=== PATIENT | female | born 1950 | race Caucasian/White ===

== ENCOUNTER 2019-04-22 19:14 | Emergency (ER) | payer MEDICARE ==
[~2019-04-22] VITALS: Ht 157.5 cm; Wt 99.8 kg
[2019-04-22 19:32] VITALS: Ht 157.5 cm; Wt 99.8 kg
[2019-04-22] MEDS ORDERED: TENORMIN50 MG PO (19:33)
[2019-04-22] MEDS ORDERED: ZOLOFT25 MG (19:34)
[2019-04-22] MEDS ORDERED: GLUCOTROL ER2.5 MG PO (19:34)
[2019-04-22] MEDS ORDERED: GLUCOPHAGE500 MG PO (19:34)
[2019-04-22] MEDS ORDERED: PLAVIX75 MG PO (19:35)
[2019-04-22] MEDS ORDERED: ASPIRIN81 MG PO (19:35)
[2019-04-22] MEDS ORDERED: LASIX20 MG (19:35)
[2019-04-22] MEDS ORDERED: GABAPENTIN300 MG PO (19:36)
[2019-04-22] MEDS ORDERED: HYDROCODON-ACE1 EA10 PO (19:36)
[2019-04-22 20:26] LABS: BASOPHILS 0.1 % (0-2); EOSINOPHILS 4.4 % (0-7); HEMOGLOBIN 11.1 g/dL (12-16); IMMATURE GRANULOCYTES 0.3 % (0-5); LYMPHOCYTES 13.8 % (15-50); MCH 29.4 pg (26.0-34.0); MCHC 31.7 g/dL (31.0-37.0); MCV 92.6 fL (80.0-100.0); MEAN PLATELET VOLUME 9.5 fL (7.4-10.4); MONOCYTES 5.9 % (2-11); NEUTROPHILS 75.5 % (40-80); PLATELET COUNT 242 10x3/uL (130-400); RBC 3.78 10x6/uL (4.00-5.40); RDW 14.5 % (11.5-14.5); WBC 6.8 10x3/uL (4.8-10.8)
[2019-04-22 20:34] LABS: INR 0.92 (0.85-1.17); PROTIME 12.4 SECONDS (11.6-15.0)
[2019-04-22 20:37] LABS: CALC OSMOLALITY 276 mosm/kg (275-300); CARBON DIOXIDE 27.2 mmol/L (21.0-32.0); CHLORIDE - SERUM 101 mmol/L (98-107); CREATININE - SERUM 1.3 mg/dL (0.6-1.3); GLUCOSE 161 mg/dL (74-106); POTASSIUM - SERUM 3.5 mmol/L (3.5-5.1); SODIUM 136 mmol/L (136-145); UREA NITROGEN 19 mg/dL (7-18); eGFR NON AFRICAN AMERICAN 43 mL/min (90-120)
[2019-04-22 20:56] LABS: ALBUMIN 3.6 g/dL (3.4-5.0); ALKALINE PHOSPHATASE 103 U/L (30-120); ALT (SGPT) 28 U/L (10-68); BILIRUBIN - TOTAL 0.43 mg/dL (0.2-1.3); CKMB 0.5 U/L (0.0-3.6); CREATINE KINASE 73 UL (21-215); MAGNESIUM - SERUM 1.9 mg/dL (1.8-2.4); PRO BNP 648 pg/mL (0-125); PROTEIN - SERUM 7.2 g/dL (6.4-8.2)
[2019-04-22 21:00] LABS: TROPONIN-I < 0.017 ng/mL (0.000-0.060)
[2019-04-22] MEDS ORDERED: KEFLEX500 MG PO (21:17)
[2019-04-22] MEDS ORDERED: HYDROCODON-ACE1 EAC7 PO (21:17)
[2019-04-22 22:34] VITALS: BP 130/66
== END 2019-04-22 22:34 | disposition home or self-care (01) ==
LOC: D.ER 19:14
PROVIDERS: Emergency Medicine
DX: R06.00 Dyspnea, unspecified (principal); J44.9 Chronic obstructive pulmonary disease, unspecified; E11.9 Type 2 diabetes mellitus without complications; Z79.84 Long term (current) use of oral hypoglycemic drugs; I11.0 Hypertensive heart disease with heart failure; I50.9 Heart failure, unspecified; Z95.5 Presence of coronary angioplasty implant and graft

== ENCOUNTER 2019-05-21 13:52 | Inpatient (IN) | payer MEDICARE ==
[~2019-05-21] VITALS: Ht 157.5 cm; Wt 101.8 kg
[2019-05-21] VITALS (8 sets, daily range): BP systolic 122–157; BP diastolic 75–101; Ht 157.5 cm; Wt 101.8 kg
--- NOTE | ~2019-05-21 | OP ---
PATIENT NAME: ROBERTO MARTEL MEDICAL RECORD: [id number] :48 LOCATION:[id number] ADMISSION DATE:05/21/19 SURGEON: TATYANA WILSON MD DATE OF OPERATION: 05/22/2019 PROCEDURE: Lead portion of permanent pacemaker placement. SURGEON: Vern Junior MD INDICATION: Sick sinus syndrome with complete heart block. DESCRIPTION OF PROCEDURE: After left subclavian was cannulated via modified Seldinger technique via Dr. Junior, first under fluoroscopic guidance, we placed the RV lead in the RV apex without difficulty. After adequate thresholds and R waves were obtained, again under fluoroscopic guidance, we placed the right atrial lead in the right atrial appendage without difficulty. After adequate P waves and thresholds were obtained, the leads were attached to appropriate poles on the generator and pocket was closed via Dr. Junior. IMPRESSION: Successful lead portion of permanent pacemaker placement on Roberto Martel. ESTIMATED BLOOD LOSS: Minimal. COMPLICATIONS: None. DISPOSITION: To the floor, stable. TRANSINT:[id number] Voice Confirmation ID: [id number] DOCUMENT ID: [id number] TATYANA WILSON MD CC: [id number] DICTATION DATE: 05/22/19 1344 COAL EQUIPMENT OPERATOR: 05/22/19 1702 ADM IN [facility] [address] [place] [address]
--- NOTE | ~2019-05-21 | OP ---
PATIENT NAME: ROBERTO MARTEL MEDICAL RECORD: [id number] :48 LOCATION:[id number] ADMISSION DATE:05/21/19 SURGEON: VERN CULVER MD DATE OF OPERATION: 05/22/2019 PREOPERATIVE DIAGNOSIS: Sick sinus syndrome with pauses. POSTOPERATIVE DIAGNOSIS: Sick sinus syndrome with pauses. PROCEDURE: 1. Left subclavian vein dual lead pacemaker placement. 2. Fluoroscopic interpretation. SURGEON: Vern Culver MD REPORT OF PROCEDURE: The patient's left chest was prepped and draped in sterile fashion. A total of 20 mL of 1% lidocaine with epinephrine was infused into the surrounding tissues. A transverse incision was made overlying the left superior lateral chest and a subcutaneous pouch was made over the pectoral fascia. Bob White were used to cannulate the left subclavian vein and guidewires were advanced with ease. Fluoro was used to note that the wires were in good position in the venous system. Dilator trocar devices were placed over the wires and the wires and dilators were removed. The leads were advanced through the trocars until they were positioned in the superior vena cava. At this point, Dr. Patel positioned the leads appropriately in the atrium and ventricle. Once the leads were in good position and functioning appropriately, then these were sutured into place with 2-0 Ti-Cron. The leads were affixed to the pacemaker and the pacemaker was placed into the subcutaneous pouch. We sutured the pacemaker to the pectoral fascia with a single interrupted 2-0 Ti-Cron. The wound was irrigated out with antibiotic solution. The subcutaneous tissues were reapproximated with interrupted 3-0 Vicryl and the skin was closed with running subcutaneous 5-0 Monocryl. COMPLICATIONS: None. CONDITION: Stable. ANESTHESIA: Local MAC. BLOOD LOSS: Minimal. TRANSINT:[id number] Voice Confirmation ID: [id number] DOCUMENT ID: [id number] VERN CULVER MD CC: [id number] DICTATION DATE: 05/22/19 1442 VP AD SALES WEST: 05/22/[address] [facility] [address] [place] [id number]
--- NOTE | ~2019-05-21 | HEMODYNAMI ---
PATIENT:ROBERTO MARTEL MEDICAL RECORD: [id number] : 46 [facility] [id number] ADMISSION DATE: 05/21/19 Generatedon:05/21/201915:45 Patient name: ROBERTO MARTEL Patient #: [id number] SSN: [id number] : 1950 Date of study: 05/21/2019 Page: Of Hemodynamic Procedure Report Patient Data Patient Demographics Procedure consent was obtained First Name: ROBERTO Gender: Female Last Name: DELONTE : 1950 Patient #: [id number] Age: 68 year(s) Race: SSN: [id number] Additional ID: [id number] Contact details [address]: [address] [place] [address] State: [place] City: [place] Zip code: [address] Past Medical History Allergies: No known allergies Admission Admission Data Admission Date: 05/21/2019 Admission Time: 13:52 Arrival Date: 05/21/2019 Arrival Time: 0:00 Admit Source: Emergency Insurance Payor: Private department health insurance [facility] #: [id number] Height (in.): 62 BSA: 1.99 (m2) Height (cm.): 157.48 BMI: 40.32 (kg/m2) Weight (lbs.): 220.46 Weight (kg.): 100 Lab Results Lab Result Date: 05/21/2019 Lab Result Time: 0:00 Biochemistry Name Units Result Min Max BUN mg/dl 20 --(----)*- 7 18 Creatinine mg/dl 1.5 --(----)-* 0.6 1.3 eGFR ml/min 36 *-(----)-- 90 120 NONAFRICAN Procedure Procedure Types Cath Procedure Diagnostic Procedure Temporary Pacemaker Procedure Description Procedure Date Procedure Date: 05/21/2019 Procedure Start Time: 15:25 Procedure End Time: 15:44 Procedure Staff Name Function Duc Wagner MD Performing Physician So Calderon RT Monitor Sade Schultz RT Scrub Keira Ceballos RN Nurse Procedure Data Cath Procedure Fluoroscopy Diagnostic fluoroscopy Total fluoroscopy Time: 1.1 time: 1.1 min min Diagnostic fluoroscopy Total fluoroscopy dose: 59 dose: 59 mGy mGy Entry Location Entry Primary Successful Side Size Upsize Upsize Entry Closure Succes sful Closure Location (Fr) 1 (Fr) 2 (Fr) Remarks Device Remarks Femoral Right 6 Fr artery Short Estimated blood loss: 5 ml Procedure Complications No complications Procedure Medications Medication Administration Route Dosage Oxygen etCO2 Nasal cannula 2 l/min Lidocaine 2% added to field 20 0.9% NaCl I.V. 100 ml/hr Versed I.V. 1 mg Fentanyl I.V. 50 mcg Versed I.V. 1 mg Fentanyl I.V. 50 mcg Hemodynamics Rest BSA: 1.99 (m2) O2 Consumption: Estimated: 158.32 (ml/min) O2 Consumption indexed : Estimated:79.56 (ml/min/m) Heart Rate: 37 (bpm) Snapshots Pre Cath Intra NCS Post Cath Vital Signs Time Heart Resp SPO2 etCO2 NIBP (mmHg) Rhythm Pain Sedation Rate (ipm) (%) (mmHg) Status Level (bpm) 15:17:39 24 18 99 0 Measuring 3 0 (11) 10(A) degree , No Heart pain Block 15:19:01 25 13 97 0 Time 3 0 (11) 10(A) Exceeded degree , No Heart pain Block 15:24:00 23 15 97 0 Measuring 3 0 (11) 10(A) degree , No Heart pain Block 15:25:01 23 15 99 0 140/107(133) 3 0 (11) 10(A) degree , No Heart pain Block 15:29:13 72 16 97 0 130/107(111) 3 0 (11) 10(A) degree , No Heart pain Block 15:34:08 87 20 96 0 145/86(111) Paced 0 (11) 10(A) , No pain 15:39:07 69 18 96 0 Measuring Paced 0 (11) 10(A) , No pain 15:39:40 70 14 96 0 132/79(100) Paced 0 (11) 10(A) , No pain 15:43:52 70 18 94 0 133/78(98) Paced 0 (11) 10(A) , No pain Medications Time Medication Route Dose Verified Delivered Reason Notes Effectiv eness by by 15:16:47 Oxygen etCO2 2 Duc Buffie used for Nasal l/min Bernard Ceballos RN procedure cannula 15:16:55 Lidocaine added 20ml Duc Duc for local 2% to vial Bernard Wagner MD anesthetic field 15:17:07 0.9% NaCl I.V. 100 Duc Buffie Per ml/hr Bernard Ceballos RN physician 15:26:05 Versed I.V. 1 mg Duc Buffie for Bernard Ceballos RN sedation 15:26:11 Fentanyl I.V. 50 Duc Buffie for mcg Bernard Ceballos RN sedation 15:32:39 Versed I.V. 1 mg Duc Buffie for Bernard Ceballos RN sedation 15:32:42 Fentanyl I.V. 50 Duc Buffie for mcg Bernard Ceballos RN sedation Procedure Log Time Note 14:50:59 Informed consent obtained and on chart 14:51:04 Arrival Date: 05/21/2019 12:00:00 AM 14:51:06 Admit Source: Emergency department 14:51:09 Insurance Payor : Private health insurance 14:51:23 Patient Height : 62 inches 14:51:27 Patient Weight : 220.46 lbs 14:51:57 Lab Result : eGFR NONAFRICAN 36 ml/min 14:51:57 Lab Result : Creatinine 1.5 mg/dl 14:51:57 Lab Result : BUN 20 mg/dl 14:52:32 Patient allergic to No known allergies 14:52:47 Keira Ceballos RN sent for patient. Start room use. 15:02:44 Procedure Status PPM/ Gen Change/ Lead Revision/ Temp. 15:03:03 Time tracking: Regular hours (M-F 7:00 - 5:00) 15:03:11 Time tracking: Stay late (Procedures after 5:00pm) 15:03:22 Plan of Care:Hemodynamics will remain stable., Cardiac rhythm will remain stable., Comfort level will be maintained., Respiratory function will remain adequate., Patient/ family verbilizes understanding of procedure., Procedure tolerated without complication., Recovers from procedure without complications.. 15:03:28 Patient received from ED to CCL 1 Alert and oriented. Tansferred to table in Supine position. 15:03:29 Warm blankets applied, and kera hugger turned on for patient comfort. 15:03:29 Correct patient and procedure confirmed by team. 15:03:30 ECG and BP/O2 sat monitors applied to patient. 15:03:42 H&P Date Dictated: 05/21/2019 New H&P dictated by physician.. 15:03:44 Pre-procedure instructions explained to patient. 15:03:44 Pre-op teaching completed and patient verbalized understanding. 15:03:46 Family unavailable. 15:03:48 Patient NPO since Lunch. 15:03:52 Is the patient allergic to Iodine/contrast media? No. 15:03:54 Was the patient premedicated? N/A 15:03:59 Alarms reviewed by R. N. 15:03:59 Sharps counted by scrub and verified by R.N. 15:04:03 Right groin area was prepped with chlora-prep and draped in sterile fashion 15:04:08 Stress Test: no; N/A ? 15:04:11 Lab results completed and on chart. 15:14:46 Is patient on blood thinner?Yes 15:14:49 ACC The patient was administered the following blood thiners within the last 24 hours: ACCPlavix 15:14:51 Patient diabetic? Yes. 15:14:52 If diabetic: On Metformin? Yes 15:14:54 If on Metformin: Last Dose? 05/21/2019 15:14:57 Patient not . Patient is over age 55. 15:14:57 ----Pre-sedation anethsthesia assessment.---- 15:15:01 Previous problem with sedation/anesthesia? No ? 15:15:02 Snore? Yes 15:15:07 Sleep apnea? Unknown 15:15:09 Deviated septum? No 15:15:10 Opens mouth fully? Yes 15:15:11 Sticks out tongue? Yes 15:15:14 Airway obstruction? Yes COPD 15:15:21 Dentures? Yes TOP IN TIGHT 15:15:30 Patient pain scale 0/10 ?. 15:15:38 IV patent on arrival in right antecubital, left antecubital with 0.9% NaCl at [facility]. 15:15:49 Vital chart was started 15:15:50 Full Disclosure recording started 15:16:47 Oxygen 2 l/min etCO2 Nasal cannula was administered by Keira Ceballos RN; used for procedure; Verbal order read back and verified. 15:16:55 Lidocaine 2% 20ml vial added to field was administered by Duc Wagner MD; for local anesthetic; Verbal order read back and verified. 15:17:07 0.9% NaCl 100 ml/hr I.V. was administered by Keira Ceballos RN; Per physician; Verbal order read back and verified. 15:18:49 Rhythm: sinus bradycardia, 3rd degree heart block 15:19:03 Use device set Femoral Dx 15:19:05 ACIST Syringe (77108) opened to sterile field. 15:19:06 Bag Decanter (2002S) opened to sterile field. 15:19:07 Medline Cath Pack ([id number]) opened to sterile field. 15:19:08 ACIST Hand Control (52008) opened to sterile field. 15:19:09 ACIST Manifold (85319) opened to sterile field. 15:19:18 Use device set Temporary Pacemaker 15:19:22 5Fr J Tip Temporary Pacing Catheter ([id number]) opened to sterile field. 15:19:23 2-0 Silk 685H opened to sterile field. 15:20:09 SHEATH 6FR Whiteface (SES911) opened to sterile field. 15:21:10 --------ALL STOP TIME OUT------ 15:21:11 Final Timeout: patient, procedure, and site verified with staff and physician. All members of the team are in agreement. 15:21:13 NOTIFIED DMITRY SHARP FAMILY MEMBER AND INFORMED. 15:21:13 Right groin site verified by team. 15:21:17 Fire Safety Assessment: A--An alcohol-based skin anteseptic being used preoperatively., C--Open oxygen or nitrous oxide is being used., D--An ESU, laser, or fiber-optic light is being used. 15:21:20 Physical assessment completed. ASA score P 2 - A patient with mild systemic disease as per Duc Wagner MD. 15:21:25 3b) 30-44 Moderately reduced kidney function. 15:21:31 Maximum allowable contrast dose (3.7 X eGFR X 0.75)100 ml. 15:21:35 Sedation plan: IV Moderate Sedation Medication:Versed, Fentanyl 15:25:44 Procedure started. 15:25:51 Local anesthetic to right femoral artery with Lidocaine 2% by Duc Wagner MD.INITIAL ACCESS ONLY 15:26:05 Versed 1 mg I.V. was administered by Keira Ceballos RN; for sedation; Verbal order read back and verified. 15:26:11 Fentanyl 50 mcg I.V. was administered by Keira Ceballos RN; for sedation; Verbal order read back and verified. 15:31:05 Baseline sample Acquired. 15:31:13 External pacer/defibrillator. Pads placed on patient. 15::32 A 6 Fr Short sheath was inserted into the Right Femoral artery 15::35 Temporary pacer inserted 15::51 Temporary pacer turned on with the following settings: Rate 70, MA 3, Sensitivity ?. 15:32:39 Versed 1 mg I.V. was administered by Keira Ceballos RN; for sedation; Verbal order read back and verified. 15:32:42 Fentanyl 50 mcg I.V. was administered by Keira Ceballos RN; for sedation; Verbal order read back and verified. 15:38:56 Procedure ended.(Physican Out) 15:39:56 Fluoroscopy time 01.10 minutes. 15:40:00 Fluoroscopy dose: 59 mGy 15:40:00 Flurop Dose total: 59 15:40:05 Dose Area Product 5397 mGy/cm. 15:40:26 Sharps counted by scrub and verified by R.N. 15:40:36 Post-procedure physical assessment completed. ASA score P 2 - A patient with mild systemic disease as per Duc Wagner MD. 15:40:39 Post procedure rhythm: sinus rhythm 15:40:43 Estimated blood loss: 5 ml 15:40:44 Post procedure instruction explained to patient.Patient verbalizes understanding. 15:40:45 Patient needs reinforcement of post procedure teaching. 15:42:14 SETTING TEMP PACER CHANGE TO RATE 70 MA 5. 15:43:36 Procedure and supply charges have been captured, reviewed, submitted and are correct. 15:43:39 Procedure Complication : No complications 15:43:42 Vital chart was stopped 15:43:47 Operative report dictated upon procedure completion. 15:43:52 See physician's report for complete and final results. 15:43:58 Report given to CVICU. 15:44:02 Patient transfered to CVICU with Bed. 15:44:04 Procedure ended. 15:44:04 Full Disclosure recording stopped 15:44:22 End room use (Document Last) 15:44:35 End room use (Document Last) 15:44:52 End room use (Document Last) Device Usage Item Name Manufacture Quantity Catalog Hospital Part Current Minimal L ot# / Number Charge Number Stock Stock Serial# Code ACIST Acist 1 [id number] [id number] 202320 [id number] 20 Syringe Medical (77213) Systems Inc Bag Microtek 1 2001S 888486 58936 [id number] 5 Decanter Medical Inc. () Medline Medline 1 [id number] 20192 034364 5 Cath Pack ([id number]) ACIST Hand Acist 1 24619 831490 821082 308218 5 Control Medical (77751) Systems Inc ACIST Acist 1 40183 842723 268846 045803 5 Manifold Medical (25294) Systems Inc 5Fr J Tip Meredith 1 [id number] 789541 41354 787815 2 Temporary Lifesciences Pacing Catheter ([id number]) 2-0 Silk Ethicon 1 685H 499868 20817 003464 5 685H SHEATH 6FR Terumo 1 [id number] 263729 077758 600272 40 Whiteface (KIR964) Signature Audit Weiser Stage Time Signature Unsigned Intra-Procedure 05/21/2019 So Calderon 3:44:35 PM RT(R) Intra-Procedure 05/21/2019 Keira Ceballos RN 3:44:52 PM Intra-Procedure 05/21/2019 Duc Wagner MD 3:45:12 [place] [address]
--- NOTE | ~2019-05-21 | HEMODYNAMI ---
PATIENT:ROBERTO MARTEL MEDICAL RECORD: [id number] : 46 [id number] ADMISSION DATE: 05/21/19 Generatedon:05/22/201913:41 Patient name: ROBERTO MARTEL Patient #: [id number] SSN: [id number] : 1950 Date of study: 05/22/2019 Page: Of Hemodynamic Procedure Report Patient Data Patient Demographics Procedure consent was obtained First Name: ROBERTO Gender: Female Last Name: DELONTE : 1950 Patient #: [id number] Age: 68 year(s) Race: SSN: [id number] Additional ID: [id number] Contact details Address: [address] [place] [address] State: [place] City: [place] Zip code: [address] Past Medical History Allergies: No known allergies Admission Admission Data Admission Date: 05/21/2019 Admission Time: 15:56 Arrival Date: 05/21/2019 Arrival Time: 0:00 Admit Source: Emergency Insurance Payor: Private department health insurance Room #: D.CV07 [facility] #: [id number] Height (in.): 62 BSA: 1.99 (m2) Height (cm.): 157.48 BMI: 40.32 (kg/m2) Weight (lbs.): 220.46 Weight (kg.): 100 Lab Results Lab Result Date: 05/21/2019 Lab Result Time: 0:00 Biochemistry Name Units Result Min Max BUN mg/dl 20 --(----)*- 7 18 Creatinine mg/dl 1.5 --(----)-* 0.6 1.3 eGFR ml/min 36 *-(----)-- 90 120 NONAFRICAN Procedure Procedure Types Cath Procedure Diagnostic Procedure PPM/ICD PPM Dual Implant Sedation Charges Moderate Sedation up to 15 minutes Procedure Description Procedure Date Procedure Date: 05/22/2019 Procedure Start Time: 13:34 Procedure End Time: 13:39 Procedure Staff Name Function Travis Cary MD Performing Physician Vern Junior MD Assisting physician Jossie Chavarria RT Monitor Keira Ceballos RN Nurse Annamarie Sparrow RT Scrub Procedure Data Cath Procedure Fluoroscopy Diagnostic fluoroscopy Total fluoroscopy Time: 3.2 time: 3.2 min min Diagnostic fluoroscopy Total fluoroscopy dose: dose: 133.02 mGy 133.02 mGy Estimated blood loss: 10 ml Procedure Complications No complications Procedure Medications Medication Administration Route Dosage Oxygen etCO2 Nasal cannula 2 l/min Ancef (1Gm/50ml NS) I.V.P.B 1 g Ancef Irrigation Topical 1 g (1gm/500ml NS) Lidocaine 1% added to field 20 Versed I.V. 2 mg Fentanyl I.V. 100 mcg Fentanyl I.V. 50 mcg Versed I.V. 1 mg Fentanyl I.V. 50 mcg Hemodynamics Rest BSA: 1.99 (m2) O2 Consumption: Estimated: 270.64 (ml/min) O2 Consumption indexed : Estimated:136 (ml/min/m) Pre Cath Intra NCS Post Cath Vital Signs Time Heart Resp SPO2 etCO2 NIBP (mmHg) Rhythm Pain Sedation Rate (ipm) (%) (mmHg) Status Level (bpm) 13:00:57 69 18 94 0 119/75(90) Paced (Missing) 10(A) 13:05:06 70 14 93 0 114/68(94) Paced (Missing) 10(A) 13:19:50 70 14 95 0 113/79(95) Paced (Missing) 9(A) 13:24:04 41 27 95 0 118/59(106) SB (Missing) 9(A) 13:28:18 64 12 96 0 137/70(115) Paced (Missing) 9(A) 13:32:34 80 14 97 0 137/85(117) Paced (Missing) 9(A) 13:36:52 59 16 96 0 126/72(103) Paced (Missing) 10(A) Medications Time Medication Route Dose Verified Delivered Reason Notes Effectiv eness by by 12:55:14 Oxygen etCO2 2 Travis Torresie used for Nasal l/min St Freddie Ceballos social media manager cannula 12:58:51 Ancef I.V.P.B 1 g Travis Torresie used for (1Gm/50ml St Freddie Ceballos social media manager NS) 12:58:58 Ancef Topical 1 g Travis Buffie used for Irrigation St Freddie Ceballos RN procedure (1gm/500ml NS) 13:00:15 Lidocaine added 20ml Travis Porras for local 1% to vial St Freddie Junior MD anesthetic field x2 MD 13:11:24 Versed I.V. 2 mg Travis Crockett for St Freddie Ceballos RN sedation 13:11:34 Fentanyl I.V. 100 Travis Crockett for mcg St Freddie Ceballos RN sedation 13:19:22 Fentanyl I.V. 50 Travis Crockett for mcg St Freddie Ceballos RN sedation 13:35:24 Versed I.V. 1 mg Travis Crockett for St Freddie Ceballos RN sedation 13:35:28 Fentanyl I.V. 50 Travis Torresie for [facility] Freddie Ceballos RN sedation Procedure Log Time Note 12:52:49 Patient Height : 62 inches 12:52:50 Patient Weight : 220.46 lbs 12:53:34 Procedure Status Urgent Heart Cath (IP). 12:53:39 Keira Ceballos RN sent for patient. Start room use. 12:54:03 Time tracking: Regular hours (M-F 7:00 - 5:00) 12:54:08 Plan of Care:Hemodynamics will remain stable., Cardiac rhythm will remain stable., Comfort level will be maintained., Respiratory function will remain adequate., Patient/ family verbilizes understanding of procedure., Procedure tolerated without complication., Recovers from procedure without complications.. 12:54:38 Patient received from Med II to CCL 3 Alert and oriented. Tansferred to table in Supine position. 12:54:42 Signed procedure consent form obtained from patient. 12:55:02 Warm blankets applied, and kera hugger turned on for patient comfort. 12:55:07 Correct patient and procedure confirmed by team. 12:55:08 ECG and BP/O2 sat monitors applied to patient. 12:55:14 Oxygen 2 l/min etCO2 Nasal cannula was administered by Keira Ceballos RN; used for procedure; Verbal order read back and verified. 12:55:25 H&P Date Dictated: 05/21/2019 Within 30 days and on chart., H&P Addendum completed by physician on day of procedure. (MUST COMPLETE FOR ALL OUTPATIENTS). 12:55:27 Pre-procedure instructions explained to patient. 12:55:38 Family unavailable. 12:55:40 Patient NPO since Midnight. 12:58:51 Ancef (1Gm/50ml NS) 1 g I.V.P.B was administered by Keira Ceballos RN; used for procedure; Verbal order read back and verified. 12:58:58 Ancef Irrigation (1gm/500ml NS) 1 g Topical was administered by Keira Ceballos RN; used for procedure; Verbal order read back and verified. 13:00:15 Lidocaine 1% 20ml vial x2 added to field was administered by Vern Junior MD; for local anesthetic; Verbal order read back and verified. 13:04:05 Patient allergic to No known allergies 13:04:10 Is the patient allergic to Iodine/contrast media? No. 13:04:12 Was the patient premedicated? Yes 13:04:13 Is patient on blood thinner?No 13:04:22 Snore? Yes 13:04:28 Patient pain scale 0/10 ?. 13:04:35 IV patent on arrival in right forearm with 0.9% NaCl at [facility]. 13:10:05 Lab results completed and on chart. 13:10:11 Physician arrived 13:10:11 --------ALL STOP TIME OUT------ 13:10:13 Final Timeout: patient, procedure, and site verified with staff and physician. All members of the team are in agreement. 13:10:19 Left chest site verified by team. 13:10:27 Sedation plan: IV Moderate Sedation Medication:Versed, Fentanyl 13:10:52 Use device set PALOMO PPM 13:10:59 Medtronic sales representative groceries Neil present for procedure. 13:11:09 Grounding pad site Left thigh. 13:11:15 Lidocaine 1% was administered to left subclavicular area by Vern Junior MD . 13:11:18 Incision made to left subclavicular area. 13:11:21 2-0 Ticron Multipack ([id number]) opened to sterile field. 13:11:22 3-0 Vicryl Single Pack [id number] opened to sterile field. 13:11:22 5-0 Monocryl PS2 [id number] opened to sterile field. 13:11:24 Versed 2 mg I.V. was administered by Keira Ceballos RN; for sedation; Verbal order read back and verified. 13:11:24 Cautery Tip X Ray Technician opened to sterile field. 13:11:25 Cautery Pushbutton Pencil opened to sterile field. 13:11:26 Mepilex Dressing ([id number]) opened to sterile field. 13:11:31 Immobilizer Extra Large opened to sterile field. 13:11:34 Fentanyl 100 mcg I.V. was administered by Keira Ceballos RN; for sedation; Verbal order read back and verified. 13:11:49 Procedure started. 13:13:[address] Generator [id number] opened to sterile field. 13:13:55 Medtronic 4074-52 PPM Lead opened to sterile field. 13:13:56 Medtronic 4574-45 PPM Lead opened to sterile field. 13:14:53 Vital chart was started 13:18:18 Left subclavian vein accessed with 9Fr Peel Away Sheath. 13:18:24 Left subclavian vein accessed with 9Fr Peel Away Sheath. 13:18:28 Ventricular lead inserted and advanced. 13:18:32 Atrial lead inserted and advanced. 13:19:22 Fentanyl 50 mcg I.V. was administered by Keira Ceballos RN; for sedation; Verbal order read back and verified. 13:20:21 Ventricular lead tested. 13:20:23 Atrial lead tested. 13:20:25 Peel-a-way sheath was split and removed. 13:20:26 Peel-a-way sheath was split and removed. 13:20:49 PPM Dual was attached to lead(s) and inserted into pocket. 13:26:37 Temporary pacer turn off 13:26:40 Temporary pacer removed 13:29:46 Device pocket was irrigated with Ancef. 13:30:31 Ventricular lead attachment was completed with 2-0 silk. 13:30:35 Atrial lead attachment was completed with 2-0 silk. 13:30:40 Generator was sutured in place with 2-0 silk. 13:30:47 Subcutaneous closure was completed with 3-0 vicryl. 13:30:56 Skin closure was completed with 5-0 monocryl. 13:32:52 Parameters-- Generator: Mode: DDDR. Lower Rate: 60bpm. Upper Rate: 120bpm. 13:33:24 Parameters--Ventricular P/R Wave: 11.2mV. Current: .3mA; Threshold: .4V; Impedence: 1441OHMS. 13:33:46 Parameters--Atrial P/R Wave: 1.7mV. Current: .9mA; Threshold: .6V; Impedence: 576OHMS. 13:33:52 Lt Chest incision was dressed with Mepilex dressing. 13:34:49 Full Disclosure recording started 13:35:08 Procedure ended.(Physican Out) 13:35:24 Versed 1 mg I.V. was administered by Keira Ceballos RN; for sedation; Verbal order read back and verified. 13:35:28 Fentanyl 50 mcg I.V. was administered by Keira Ceballos RN; for sedation; Verbal order read back and verified. 13:35:48 Fluoroscopy time 03.20 minutes. 13:35:56 Fluoroscopy dose: 133.02 mGy 13:35:56 Flurop Dose total: 133.02 13:36:02 Dose Area Product 1522 mGy/cm. 13:36:07 Sharps counted by scrub and verified by R.N. 13:36:10 Insertion/operative site no bleeding no hematoma. 13:36:24 Post Procedure Pulses reassessed and unchanged 13:36:34 Post-procedure physical assessment completed. ASA score P 3 - A patient with severe systemic disease as per Travis Cary MD. 13:36:39 Post procedure rhythm: paced 13:36:44 Estimated blood loss: 10 ml 13:36:46 Post procedure instruction explained to patient.Patient verbalizes understanding. 13:37:56 Procedure type changed to Cath procedure, Diagnostic procedure, PPM/ICD, PPM Dual Implant, Sedation Charges, Moderate Sedation up to 15 minutes 13:37:58 Procedure and supply charges have been captured, reviewed, submitted and are correct. 13:38:25 Procedure Complication : No complications 13:38:27 Vital chart was stopped 13:38:42 Operative report dictated upon procedure completion. 13:38:43 See physician's report for complete and final results. 13:38:45 Report given to Med II. 13:38:50 Patient transfered to [facility] II with Bed. 13:39:01 Procedure ended. 13:39:01 Full Disclosure recording stopped 13:39:05 End room use (Document Last) 13:40:09 End room use (Document Last) 13:41:01 End room use (Document Last) Device Usage Item Name Manufacture Quantity Catalog Hospital Part Current Minima l Lot# / Number Charge Number Stock Stock Serial# Code 2-0 Ticron Ethicon 1 [id number] 077740 86970 [id number] 5 Multipack ([id number]) 3-0 Vicryl Ethicon 1 [id number] 994550 922513 355278 5 Single Pack [id number] 5-0 Monocryl Ethicon 1 Y495G 051825 674207 558250 5 PS2 Y495G Cautery Tip Microtek 1 [id number] 304759 491582 862489 5 X Ray Technician [employer] Inc[employer] Cautery Microtek 1 [id number] 260308 87244 102245 5 Pushbutton Medical Inc. Pencil Mepilex Cardinal 1 985937 055630 683551 535179 5 [facility] ([id number]) Immobilizer Cardinal 1 [id number] 346576 476810 584869 5 Extra Large Health Medtronic Medtronic 1 W1DR01 271363 5040104 998437 [address] [id number] Generator EXP W1DR01 .2020-09-27 Medtronic Medtronic 1 4074-52 041356 949019 112050 5 4074-52 PPM [id number] Lead EXP .2021-03-06 Medtronic Medtronic 1 4574-45 927653 046508 437122 5 4574-45 PPM [id number] Lead EXP . 2021-01-23 Signature Audit [place] Stage Time Signature Unsigned Intra-Procedure 05/22/2019 Jossie Chavarria 1:40:09 PM RT(R) Intra-Procedure 05/22/2019 Keira Ceballos RN 1:41:01 PM Intra-Procedure 05/22/2019 Travis Fletcher 1:41:29 PM Freddie SINGLETARY [address] [id number]
[~2019-05-21 13:52] MED LIST: ASPIRIN81 MG PO; GABAPENTIN300 MG PO; GLUCOPHAGE500 MG PO; GLUCOTROL ER2.5 MG PO; HYDROCODON-ACE1 EA10 PO; HYDROCODON-ACE1 EAC7 PO; KEFLEX500 MG PO; LASIX20 MG; PLAVIX75 MG PO; TENORMIN50 MG PO; ZOLOFT25 MG
[2019-05-21 14:44] LABS: APTT 28.5 SECONDS (22.8-39.4); INR 0.91 (0.85-1.17); PROTIME 12.2 SECONDS (11.6-15.0)
[2019-05-21 14:46] LABS: CALC OSMOLALITY 284 mosm/kg (275-300); CALCIUM 8.8 mg/dL (8.5-10.1); CARBON DIOXIDE 25.9 mmol/L (21.0-32.0); CHLORIDE - SERUM 105 mmol/L (98-107); CREATININE - SERUM 1.5 mg/dL (0.6-1.3); GLUCOSE 201 mg/dL (74-106); POTASSIUM - SERUM 4.3 mmol/L (3.5-5.1); SODIUM 138 mmol/L (136-145); UREA NITROGEN 20 mg/dL (7-18); eGFR NON AFRICAN AMERICAN 36 mL/min (90-120)
[2019-05-21 15:02] LABS: ALBUMIN 3.5 g/dL (3.4-5.0); ALKALINE PHOSPHATASE 114 U/L (30-120); ALT (SGPT) 58 U/L (10-68); CKMB 0.9 U/L (0.0-3.6); CREATINE KINASE 80 UL (21-215); DIGOXIN 0.08 ng/mL (0.90-2.00); MAGNESIUM - SERUM 1.7 mg/dL (1.8-2.4); PRO BNP 1113 pg/mL (0-125); THYROID STIMULATING HORMONE 0.89 uIU/mL (0.36-3.74)
[2019-05-21 15:08] LABS: BASOPHILS 0.2 % (0-2); EOSINOPHILS 3.7 % (0-7); HEMATOCRIT 39.3 % (36.0-48.0); HEMOGLOBIN 11.8 g/dL (12-16); IMMATURE GRANULOCYTES 0.2 % (0-5); LYMPHOCYTES 13.1 % (15-50); MCH 28.8 pg (26.0-34.0); MCV 95.9 fL (80.0-100.0); MEAN PLATELET VOLUME 10.8 fL (7.4-10.4); MONOCYTES 7.3 % (2-11); NEUTROPHILS 75.5 % (40-80); PLATELET COUNT 237 10x3/uL (130-400); RDW 14.3 % (11.5-14.5); TROPONIN-I < 0.017 ng/mL (0.000-0.060); WBC 6.3 10x3/uL (4.8-10.8)
--- NOTE | 2019-05-21 15:59 | NUR ---
1535- CALLED AND INFORMED DMITRY OSULLIVAN, SON IN LAW OF PT, PTS CONDITION POST PROCEDURE. 1550- CALLED [facility] AND INQUIRED ABOUT PT'S CERON/SILVER MEDICATION BAG AFTER ER PERSONEL STATES IT WAS NOT BROUGHT IN WITH PT. AWAITING CALL BACK FROM [facility]. 1631- CALLED [facility] BACK AND LEFT CVICU PHONE NUMBER FOR CALLBACK AWAITING NEWS ON MEDICATION BAG FOR PT. JUANITA NUNEZ RN IS AWARE OF THIS ISSUE AND WILL AWAIT CALL FROM [facility].
--- NOTE | 2019-05-21 20:01 | NUR ---
PT RECEIVED WITH EYES OPEN WATCHING TV. PT WITH EXTERNAL CATH, WITH LEAKING NOTED. PERICARE AND PARTIAL LINEN CHANGE PROVIDED WITH ASSIST OF OFF GOING NURSE. PT TOLERATED WELL, KEEP RIGHT LEG STRAIGHT DUE TO TEMPORARY PACEMAKER THROUGH RIGHT GROIN. PT NPO. COMPLAINS OF PAIN WITH PRN PAIN MEDICATION PROVIDED PER APR. CALL LIGHT IN REACH. WILL CONTINUE TO OBSERVE.
--- NOTE | 2019-05-21 21:16 | NUR ---
PT COMPLAINS OF RESTLES LEG. FIDGETING BILATERAL LEGS, REMINDED TO KEEP RIGHT LEG STRAIGHT. PRN PAIN MEDICATION GIVEN, WITH IMPROVEMENT BUT CONTINUE TO WANT TO MOVE RIGHT LEG. SOFT ANKLE RESTRAINT APPLIED WITH EDUCATION PROVIDED TO PT AND PT IS OK WITH APPLICATION. CALL LIGHT IN REACH. WILL CONTINUE TO OBSERVE.
--- NOTE | 2019-05-21 21:53 | NUR ---
FAMILY CALLED UNABLE TO GIVE INFOMATION DUE TO NOT HAVING SECURITY CODE. PT GIVEN HER SECURITY CODE AND EDUCATED ON PURPOSE, STATES UNDERSTANDING.
--- NOTE | 2019-05-21 23:39 | NUR ---
PT WATCHING TV. NO NEEDS OR CONCERNS MADE KNOWN. REMINDED TO KEEP RIGHT LEG STRAIGHT AND STILL. CALL LIGHT IN REACH. WILL CONTINUE TO OBSERVE.
[2019-05-22] VITALS (26 sets, daily range): BP systolic 117–170; BP diastolic 71–91
--- NOTE | 2019-05-22 01:32 | NUR ---
PT WITH EYES CLOSED AND CHEST RISING. NO S/S OF DISTRESS NOTED. CALL LIGHT IN REACH. WILL CONTINUE TO OBSERVE.
[2019-05-22 02:50] LABS: BILIRUBIN NEGATIVE (NEGATIVE); GLUCOSE NEGATIVE (NEGATIVE); KETONE NEGATIVE (NEGATIVE); NITRITE NEGATIVE (NEGATIVE); UROBILINOGEN NORMAL (NORMAL)
[2019-05-22 06:37] LABS: BASOPHILS 0.4 % (0-2); EOSINOPHILS 5.2 % (0-7); HEMATOCRIT 39.4 % (36.0-48.0); HEMOGLOBIN 11.8 g/dL (12-16); IMMATURE GRANULOCYTES 0.2 % (0-5); MCH 28.4 pg (26.0-34.0); MCHC 29.9 g/dL (31.0-37.0); MCV 94.7 fL (80.0-100.0); MEAN PLATELET VOLUME 10.2 fL (7.4-10.4); MONOCYTES 7.1 % (2-11); NEUTROPHILS 67.1 % (40-80); PLATELET COUNT 190 10x3/uL (130-400); RBC 4.16 10x6/uL (4.00-5.40); RDW 14.1 % (11.5-14.5)
[2019-05-22 06:44] LABS: WBC 4.7 10x3/uL (4.8-10.8)
[2019-05-22 07:01] LABS: ALBUMIN 3.3 g/dL (3.4-5.0); ALKALINE PHOSPHATASE 109 U/L (30-120); ALT (SGPT) 48 U/L (10-68); BILIRUBIN - TOTAL 0.51 mg/dL (0.2-1.3); CALCIUM 8.4 mg/dL (8.5-10.1); CARBON DIOXIDE 28.7 mmol/L (21.0-32.0); CHLORIDE - SERUM 105 mmol/L (98-107); CKMB 0.7 U/L (0.0-3.6); CREATINE KINASE 56 UL (21-215); MAGNESIUM - SERUM 1.7 mg/dL (1.8-2.4); PHOSPHOROUS 2.7 mg/dL (2.5-4.9); POTASSIUM - SERUM 3.7 mmol/L (3.5-5.1); PRO BNP 3303 pg/mL (0-125); PROTEIN - SERUM 6.2 g/dL (6.4-8.2); SODIUM 141 mmol/L (136-145); THYROID STIMULATING HORMONE 0.81 uIU/mL (0.36-3.74); TROPONIN-I 0.017 ng/mL (0.000-0.060)
[2019-05-22 07:02] LABS: CALC OSMOLALITY 283 mosm/kg (275-300); CREATININE - SERUM 1.1 mg/dL (0.6-1.3); GLUCOSE 126 mg/dL (74-106); UREA NITROGEN 14 mg/dL (7-18); eGFR NON AFRICAN AMERICAN 52 mL/min (90-120)
[2019-05-22 14:20] LABS: HEMATOCRIT 39.7 % (36.0-48.0); HEMOGLOBIN 11.8 g/dL (12-16); MCH 28.3 pg (26.0-34.0); MCHC 29.7 g/dL (31.0-37.0); MCV 95.2 fL (80.0-100.0); MEAN PLATELET VOLUME 10.2 fL (7.4-10.4); RBC 4.17 10x6/uL (4.00-5.40); RDW 14.2 % (11.5-14.5); WBC 4.3 10x3/uL (4.8-10.8)
[2019-05-22 14:36] LABS: APTT 28.7 SECONDS (22.8-39.4); PROTIME 13.1 SECONDS (11.6-15.0)
[2019-05-22 14:37] LABS: ANION GAP 7.9 mmol/L (8-16); CALCIUM 8.3 mg/dL (8.5-10.1); CARBON DIOXIDE 31.2 mmol/L (21.0-32.0); CREATININE - SERUM 1.1 mg/dL (0.6-1.3); POTASSIUM - SERUM 4.1 mmol/L (3.5-5.1)
--- NOTE | 2019-05-22 15:19 | NUR ---
PHONE CALL MADE TO DMITRY OSULLIVAN BY DR MEJIA AND INFORMED FAMILY OF PT RESULTS FROM PROCEDURE.
--- NOTE | 2019-05-22 19:00 | NUR ---
SHIFT ASSESSMENT COMPLETED. PT CARE ASSUMED, MONITORS ON AND WORKING, VITALS STABLE, CALL LIGHT WITHIN REACH, SEE FLOW SHEET FOR FURTHER DETAILS, WILL CONTINUE TO OBSERVE.
--- NOTE | 2019-05-22 19:17 | MORECARE ---
CASE MANAGEMENT DISCHARGE SUMMARY PATIENT: ROBERTO MARTEL UNIT: [id number] ADM DATE: 05/21/19 AGE: 68 : [birth year] SEX: F ROOM/BED: [facility] AUTHOR: DANETTE MONTAGUE PHYSICIAN: REFERRING PHYSICIAN: KAM ROBLES MD DATE OF SERVICE: 05/22/19 Discharge Plan Patient Name: ROBERTO MARTEL [facility] : 1950 Planned Disposition: Home Anticipated Discharge Date: Discharge Date: Expected LOS: Initial Reviewer: [email or web address] Initial Review Date: 05/21/2019 Generated: 05/22/19 8:17 pm Patient Name: ROBERTO MARTEL Page 75929 at 1916 All edits/amendments must be made on the electronic document DICTATION DATE: 05/22/191916 LIFESTYLE COORDINATOR: MARY 05/22/191916 RPT#: [id number] DC DATE: STATUS: ADM IN [facility] [address] [place] [address] END OF REPORT
--- NOTE | 2019-05-22 19:24 | MORECARE ---
CASE MANAGEMENT DISCHARGE SUMMARY PATIENT: ROBERTO MARTEL UNIT: [id number] ADM DATE: 05/21/19 AGE: 68 : 48 SEX: F [facility] AUTHOR: DANETTE MONTAGUE PHYSICIAN: REFERRING PHYSICIAN: KAM ROBLES MD DATE OF SERVICE: 05/22/19 Discharge Plan Patient Name: ROBERTO MARTEL [facility] [facility] 1950 Planned Disposition: Home Anticipated Discharge Date: Discharge Date: Expected LOS: Initial Reviewer: [email or web address] Initial Review Date: 05/21/2019 Generated: 05/22/19 8:23 pm DCPIA - Discharge Planning Initial Assessment Updated by [email or web address]: Diana Rausch on 05/22/19 7:20 pm * Is the patient Alert and Oriented? Yes * How many steps to enter\exit or inside your home? * PCP MICHELLE * Pharmacy [facility] * Preadmission Environment Home with Family * ADLs Independent * Other Equipment NEBULIZER, CANE * List name and contact numbers for known caregivers / representatives who currently or will assist patient after discharge: DERRELL STACY [facility] [phone] DMITRY OSULLIVAN [phone] * Verbal permission to speak to the caregivers and representatives has been obtained from the patient. Yes * Community resources currently utilized None * Additional services required to return to the preadmission environment? No * Can the patient safely return to the preadmission environment? Yes * Has this patient been hospitalized within the prior 30 days at any hospital? No Last DP export: 05/22/19 6:17 pm Patient Name: ROBERTO MARTEL Page 48294 at 1924 All edits/amendments must be made on the electronic document DICTATION DATE: 05/22/191922 WALLPAPER PRINTER HELPER: MARY 05/22/191922 RPT#: [id number] DC DATE: STATUS: ADM IN [facility] [address] [place] [address] END OF REPORT
--- NOTE | 2019-05-22 19:37 | MORECARE ---
CASE MANAGEMENT DISCHARGE SUMMARY PATIENT: ROBERTO MARTEL UNIT: [id number] ADM DATE: 05/21/19 AGE: 68 : 48 SEX: F [facility] AUTHOR: CLARI,DOC PHYSICIAN: REFERRING PHYSICIAN: KAM ROBLES MD DATE OF SERVICE: 05/22/19 Discharge Plan Patient Name: ROBERTO MARTEL Facility: [facility]:[place] : 1950 Planned Disposition: Home Anticipated Discharge Date: Discharge Date: Expected LOS: Initial Reviewer: [email or web address] Initial Review Date: 05/21/2019 Generated: 05/22/19 8:37 pm Comments DCP- Discharge Planning Updated by [email or web address]: Diana Rausch on 05/22/19 6:[address] Patient Name: ROBERTO MARTEL Admission Status: ER Accout number: [id number] Admission Date: 05-21-2019 : 1950 Admission Diagnosis: Attending: KAM ROBLES Current LOS: 1 Anticipated DC Date: Planned Disposition: Home Primary Insurance: [employer] CHOICE PPO MCR ADVANT Discharge Planning Comments: CM met with patient to complete initial dc planning assessment. CM educated patient on the CM role and verbal consent given by patient to complete assessment. CM verified patient's address, phone number, and emergency contact phone numbers. Patient lives at home independently. At discharge patient plans to return home and feels that this is a safe discharge. CM discussed availability of home health, rehab services, and medical equipment. Patient states that she has a nebulizer and cane. CM will continue to follow and will assist as needed with dc plans/needs. Legislative Correspondent: Diana Rausch DCPIA - Discharge Planning Initial Assessment Updated by [email or web address]: Diana Rausch on 05/22/19 7:20 pm * Is the patient Alert and Oriented? Yes * How many steps to enter\exit or inside your home? * PCP MICHELLE * Pharmacy [facility] * Preadmission Environment Home with Family * ADLs Independent * Other Equipment NEBULIZER, CANE * List name and contact numbers for known caregivers / representatives who currently or will assist patient after discharge: DERRELL EDWARD - [phone] [place] [address] * Verbal permission to speak to the caregivers and representatives has been obtained from the patient. Yes * Community resources currently utilized None * Additional services required to return to the preadmission environment? No * Can the patient safely return to the preadmission environment? Yes * Has this patient been hospitalized within the prior 30 days at any hospital? No Last DP export: 05/22/19 6:24 pm Patient Name: ROBERTO MARTEL Page 84265 at 1937 All edits/amendments must be made on the electronic document DICTATION DATE: 05/22/191936 FILTER PLANT OPERATOR: MARY 05/22/191936 RPT#: [id number] DC DATE: STATUS: ADM IN [facility] [address] [place] [address] END OF REPORT
[2019-05-23] VITALS (11 sets, daily range): BP systolic 124–161; BP diastolic 65–90
[2019-05-23 06:52] LABS: BASOPHILS 0.2 % (0-2); EOSINOPHILS 5.3 % (0-7); HEMATOCRIT 42.3 % (36.0-48.0); HEMOGLOBIN 12.7 g/dL (12-16); IMMATURE GRANULOCYTES 0.2 % (0-5); LYMPHOCYTES 16.8 % (15-50); MCH 28.5 pg (26.0-34.0); MCV 94.8 fL (80.0-100.0); MEAN PLATELET VOLUME 10.2 fL (7.4-10.4); MONOCYTES 7.7 % (2-11); NEUTROPHILS 69.8 % (40-80); PLATELET COUNT 220 10x3/uL (130-400); RBC 4.46 10x6/uL (4.00-5.40); RDW 14.1 % (11.5-14.5); WBC 4.7 10x3/uL (4.8-10.8)
[2019-05-23 07:06] LABS: ANION GAP 11.1 mmol/L (8-16); CALCIUM 8.7 mg/dL (8.5-10.1); CARBON DIOXIDE 29.8 mmol/L (21.0-32.0); CREATININE - SERUM 1.1 mg/dL (0.6-1.3); MAGNESIUM - SERUM 1.8 mg/dL (1.8-2.4); PHOSPHOROUS 2.9 mg/dL (2.5-4.9); POTASSIUM - SERUM 3.9 mmol/L (3.5-5.1)
--- NOTE | 2019-05-23 09:00 | NUR ---
0700 PT RECIEVED UP IN CHAIR VSS DENIES PAIN SLING IN PLACE, WILL CONTINUE TO MONITOR 0900 AM MEDS GIVEN, ATE 100% BREAKFAST
--- NOTE | 2019-05-23 10:12 | NUR ---
PT TO DC HOME, PT HAS APPT WITH DR MARTINEZ NEXT WEEK, PER DR ROBLES THIS IS OKAY AND NO OTHER FOLLOW UP WITH HIM REQUIRED
--- NOTE | 2019-05-23 10:57 | NUR ---
AWAITING PTS DAUGHTER FOR RIDE, ASSISTED WITH GETTING DRESSED, DC INSTRUCTIONS REVIEWED AND PT DENIES ALL QUESTIONS
--- NOTE | 2019-05-23 11:39 | NUR ---
PT STATES NO ONE IS ABLE TO COME GET HER, CASE MANAGEMENT NOTIFIED
--- NOTE | 2019-05-23 12:53 | NUR ---
PT TO DC WITH TAXI PER CASE MANAGEMENT, PIV DCD AND ASSISTED TO MEET TAXI BY CHARGE NURSE
--- NOTE | 2019-05-24 14:19 | MORECARE ---
CASE MANAGEMENT DISCHARGE SUMMARY PATIENT: ROBERTO MARTEL UNIT: [id number] ADM DATE: 05/21/19 AGE: 68 : 48 SEX: F [facility] AUTHOR: CLARI,DOC PHYSICIAN: REFERRING PHYSICIAN: KAM ROBLES MD DATE OF SERVICE: 05/24/19 Discharge Plan Patient Name: ROBERTO MARTEL Facility: [facility]:[place] : 1950 Planned Disposition: Home Anticipated Discharge Date: Discharge Date: 05/23/2019 Expected LOS: Initial Reviewer: [email or web address] Initial Review Date: 05/21/2019 Generated: 05/24/19 3:19 pm Comments DCP- Discharge Planning Updated by [email or web address]: Diana Rausch on 05/22/19 6:[address] Patient Name: ROBERTO MARTEL Admission Status: ER Accout number: [id number] Admission Date: 05-21-2019 : 1950 Admission Diagnosis: Attending: KAM ROBLES Current LOS: 1 Anticipated DC Date: Planned Disposition: Home Primary Insurance: [employer] CHOICE PPO MCR ADVANT Discharge Planning Comments: CM met with patient to complete initial dc planning assessment. CM educated patient on the CM role and verbal consent given by patient to complete assessment. CM verified patient's address, phone number, and emergency contact phone numbers. Patient lives at home independently. At discharge patient plans to return home and feels that this is a safe discharge. CM discussed availability of home health, rehab services, and medical equipment. Patient states that she has a nebulizer and cane. CM will continue to follow and will assist as needed with dc plans/needs. Fishing Tool Operator: Diana Rausch DCPIA - Discharge Planning Initial Assessment Updated by [email or web address]: Diana Rausch on 05/22/19 7:20 pm * Is the patient Alert and Oriented? Yes * How many steps to enter\exit or inside your home? * PCP MICHELLE * Pharm[facility] * Preadmission Environment Home with Family * ADLs Independent * Other Equipment NEBULIZER, CANE * List name and contact numbers for known caregivers / representatives who currently or will assist patient after discharge: DERRELL EDWARD [phone] DMITRY [phone] * Verbal permission to speak to the caregivers and representatives has been obtained from the patient. Yes * Community resources currently utilized None * Additional services required to return to the preadmission environment? No * Can the patient safely return to the preadmission environment? Yes * Has this patient been hospitalized within the prior 30 days at any hospital? No Last DP export: 05/22/19 6:37 pm Patient Name: ROBERTO MARTEL Page 97137 at 1419 All edits/amendments must be made on the electronic document DICTATION DATE: 05/24/191418 IMPREGNATOR HELPER: MARY 05/24/19 141 RPT#: [id number] DC DATE:05/23/19 STATUS: DIS IN [facility] [address] [place] [address] END OF REPORT
== END 2019-05-23 12:55 | disposition home or self-care (01) | DRG 242 ==
LOC: D.ER 13:52 → D.CVICU 15:56
PROVIDERS: Family Medicine; Internal Medicine Interventional Cardiology; ADMIT Internal Medicine Nephrology; ATTEND Internal Medicine Nephrology
PROC: 02HK3JZ Insertion of Pacemaker Lead into Right Ventricle, Percutaneous Approach (ICD-10-PCS; 2019-05-22)
PROC: 02H63JZ Insertion of Pacemaker Lead into Right Atrium, Percutaneous Approach (ICD-10-PCS; 2019-05-22)
PROC: 0JH606Z Insertion of Pacemaker, Dual Chamber into Chest Subcutaneous Tissue and Fascia, Open Approach (ICD-10-PCS; principal; 2019-05-22 14:15)
DX: I49.5 Sick sinus syndrome (principal); N17.0 Acute kidney failure with tubular necrosis; Z68.41 Body mass index [BMI] 40.0-44.9, adult; I44.2 Atrioventricular block, complete; K21.9 Gastro-esophageal reflux disease without esophagitis; J44.9 Chronic obstructive pulmonary disease, unspecified; E66.01 Morbid (severe) obesity due to excess calories; I10 Essential (primary) hypertension; E11.9 Type 2 diabetes mellitus without complications; E83.42 Hypomagnesemia; I25.10 Atherosclerotic heart disease of native coronary artery without angina pectoris

== ENCOUNTER → 2019-06-19 09:42 | Outpatient (CLI) | payer MEDICARE ==
[2019-05-21 16:43] VITALS: BMI 41.0
== END | disposition home or self-care (01) ==
LOC: D.HCCARDIO 09:42
PROVIDERS: ATTEND Internal Medicine Cardiovascular Disease
DX: I25.10 Atherosclerotic heart disease of native coronary artery without angina pectoris (principal); I73.9 Peripheral vascular disease, unspecified; Z95.0 Presence of cardiac pacemaker

== ENCOUNTER 2019-07-20 08:11 | Outpatient (CLI) | payer MEDICARE ==
[~2019-07-20] VITALS: Ht 157.5 cm; Wt 98.4 kg
--- NOTE | ~2019-07-20 | HEMODYNAMI ---
PATIENT:ROBERTO MARTEL MEDICAL RECORD: [id number] : 46 LOCATION:[facility] ADMISSION DATE: 07/20/19 Generatedon:07/20/201912:16 Patient name: ROBERTO MARTEL Patient #: [id number] SSN: [id number] : 1950 Date of study: 07/20/2019 Page: Of Hemodynamic Procedure Report Patient Data Patient Demographics Procedure consent was obtained First Name: ROBERTO Gender: Female Last Name: DELONTE : 1950 Patient #: [id number] Age: 68 year(s) Race: SSN: [id number] Additional ID: [id number] Contact details Address: [address] [place] [address] State: [place] City: [place] Zip code: [address] Past Medical History Performed procedures and imaging results Date Procedure Procedure Results Comments Stress testing Positive->Intermediate with SPECT MPI risk History of disease Date Diagnosis Comments CAD Diabetes Hypertension COPD Allergies: No known allergies Admission Admission Data Admission Date: 07/20/2019 Admission Time: 8:11 Arrival Date: 07/20/2019 Arrival Time: 0:00 Admit Source: Other Insurance Payor: Private health insurance [facility] #: [id number] Height (in.): 61.81 BSA: 1.97 (m2) Height (cm.): 157 BMI: 39.76 (kg/m2) Weight (lbs.): 216.05 Weight (kg.): 98 Lab Results Lab Result Date: 07/20/2019 Lab Result Time: 0:00 Biochemistry Name Units Result Min Max BUN mg/dl 24 --(----)-* 7 18 Creatinine mg/dl 1.2 --(---*)-- 0.6 1.3 eGFR ml/min 47 *-(----)-- 90 120 NONAFRICAN CBC Name Units Result Min Max Hemoglobin g/dl 12.5 *-(----)-- 13.5 17.5 Procedure Procedure Types Cath Procedure Diagnostic Procedure [facility] w/Coronaries Procedure Description Procedure Date Procedure Date: 07/20/2019 Procedure Start Time: 11:43 Procedure End Time: 12:07 Procedure Staff Name Function Annamarie Andrews RT Monitor Keira Ceballos RN Nurse Duc Wagner MD Performing Physician Fazal Cedillo CRNA Additional personnel So Calderon RT Scrub Procedure Data Cath Procedure Fluoroscopy Diagnostic fluoroscopy Total fluoroscopy Time: 3.2 time: 3.2 min min Diagnostic fluoroscopy Total fluoroscopy dose: dose: 1120 mGy 1120 mGy Contrast Material Contrast Material Type Amount (ml) Isovue 300 81 Entry Location Entry Primary Successful Side Size Upsize Upsize Entry Closure Succes sful Closure Location (Fr) 1 (Fr) 2 (Fr) Remarks Device Remarks Femoral Right 5 Fr Exoseal artery Estimated blood loss: 5 ml Diagnostic catheters Device Type Used For End Catheter Placement MULTIPACK 3DRC 5Fr Right Coronary catheter Angiography MULTIPACK JL 4.0 5Fr Left Coronary catheter Angiography MULTIPACK Pigtail 5 Fr LV Angiography catheter Procedure Complications No complications Procedure Medications Medication Administration Route Dosage Oxygen etCO2 Nasal cannula 2 l/min Lidocaine 2% added to field 20 Heparin Flush Bag added to field 2 bags (1000units/500ml NS) 0.9% NaCl I.V. 100 ml/hr Refer to Anesthesia Notes for Sedation Medications Hemodynamics Rest BSA: 1.97 (m2) HGB: 12.5 (g/dl) O2 Consumption: Estimated: 184.41 (ml/min) O2 Co nsumption indexed: Estimated:93.61 (ml/min/m) Heart Rate: 74 (bpm) Pressure Samples Time Site Value (mmHg) Purpose Heart Use Rate(bpm) 12:00 LV 127/2,12 Snapshot 85 12:00 AO 129/63(90) Pullback 53 Gradients Valve Time Site Site 2 Mean SEP/DFP Peak To Heart Use 1 (mmHg) (sec/min) Peak Rate (mmHg) (bpm) Aortic 12:00 LV AO 15 4 53 129/63(90) Calculations Valve P-P Mean Valve Index Valve Source Name Gradient Area Flow (cm2) Aortic 15 15 Snapshots Pre Cath Intra NCS Post Cath Vital Signs Time Heart Resp SPO2 etCO2 NIBP (mmHg) Rhythm Pain Sedation Rate (ipm) (%) (mmHg) Status Level (bpm) 11:31:43 80 27 94 33.7 185/144(149) NSR 0 (11) 10(A) , No pain 11:37:50 79 22 95 0 153/93(129) NSR 0 (11) 9(A) , No pain 11:42:14 73 20 96 0 145/87(120) NSR 0 (11) 9(A) , No pain 11:46:36 84 22 97 0 155/96(126) NSR 0 (11) 9(A) , No pain 11:51:05 80 19 97 0 144/84(110) NSR 0 (11) 9(A) , No pain 11:55:31 76 20 99 0 141/78(111) NSR 0 (11) 9(A) , No pain 11:59:49 89 20 94 0 125/81(102) NSR 0 (11) 9(A) , No pain 12:04:05 82 20 97 0 139/80(112) NSR 0 (11) 9(A) , No pain 12:07:30 77 21 98 0 155/92(127) NSR 0 (11) 10(A) , No pain Medications Time Medication Route Dose Verified Delivered Reason Notes Effe ctiveness by by 11:40:37 Oxygen etCO2 2 Duc Buffie used for Nasal l/min Bernard Ceballos cnc lathe machinist cannula 11:40:43 Lidocaine 2% added 20ml Duc Buffie used for to vial Bernard Ceballos cnc lathe machinist field 11:40:50 Heparin Flush added 2 Duc Buffie Per Bag to bags Bernard Ceballos RN physician (1000units/500ml field NS) 11:41:02 0.9% NaCl I.V. 100 Duc Buffie Per ml/hr Bernard Ceballos RN physician 11:41:08 Refer to Duc Buffie Anesthesia Notes Bernard Ceballos RN for Sedation Medications Procedure Log Time Note 9:02:19 Informed consent obtained and on chart 9:02:40 Procedure Status Elective Heart Cath (OP). 9:02:41 Time tracking: Regular hours (M-F 7:00 - 5:00) 9:02:44 Plan of Care:Hemodynamics will remain stable., Cardiac rhythm will remain stable., Comfort level will be maintained., Respiratory function will remain adequate., Patient/ family verbilizes understanding of procedure., Procedure tolerated without complication., Recovers from procedure without complications.. 9:02:54 H&P Date Dictated: 07/20/2019 New H&P dictated by physician.. 9:19:23 Patient Weight : 216.05 lbs 9:19:31 Patient Height : 61.81 inches 9:19:35 Arrival Date: 07/20/2019 12:00:00 AM 9:21:45 Patient received from Pre/Post Procedure Room to CCL 1 Alert and oriented. Tansferred to table in Supine position. 9:21:47 ECG and BP/O2 sat monitors applied to patient. 9:21:47 Correct patient and procedure confirmed by team. 9:21:47 Warm blankets applied, and kera hugger turned on for patient comfort. 9:25:12 Pre-procedure instructions explained to patient. 9:25:14 Pre-op teaching completed and patient verbalized understanding. 9:25:16 Family in patients room. 9:25:18 Patient NPO since Midnight. 9:25:19 patient taken off table and sent back to room to wait for anesthesia 10:55:15 Keira Ceballos RN sent for patient. Start room use. 10:57:37 Admit Source: Other 10:57:40 Insurance Payor : Private health insurance 11:00:00 Fazal Cedillo CRNA present and monitoring patient for TIVA. 11:02:03 Lab Result : eGFR NONAFRICAN 47 ml/min 11:02:03 Lab Result : Hemoglobin 12.5 g/dl 11:02:03 Lab Result : BUN 24 mg/dl 11:02:03 Lab Result : Creatinine 1.2 mg/dl 11:29:33 Vital chart was started 11:29:35 Baseline sample Acquired. 11:29:44 Rhythm: sinus rhythm , paced 11:29:48 - 11:30:00 Patient allergic to No known allergies 11:30:02 Is the patient allergic to Iodine/contrast media? No. 11:30:33 Is patient on blood thinner?No 11:30:35 Patient diabetic? Yes. 11:30:38 If diabetic: On Metformin? Yes 11:30:44 Previous problem with sedation/anesthesia? No ? 11:30:45 Snore? Yes 11:30:48 Sleep apnea? No 11:30:49 Deviated septum? No 11:31:02 Opens mouth fully? Yes 11:31:09 Sticks out tongue? Yes 11:31:18 Airway obstruction? No ? 11:31:21 Dentures? No ? 11:31:23 Pre procedure: right dorsailis pedis pulse 1+ Palpable, but thready & weak; easily obliterated 11:31:28 Patient pain scale 0/10 ?. 11:31:50 IV patent on arrival in left hand with 0.9% NaCl at [facility]. 11:31:52 Lab results completed and on chart. 11:31:57 Right groin area was prepped with chlora-prep and draped in sterile fashion 11:31:58 Sharps counted by scrub and verified by R.N. 11:31:58 Alarms reviewed by R. N. 11:32:18 Use device set Femoral Dx 11:32:19 Bag Decanter (2002S) opened to sterile field. 11:32:19 ACIST Syringe (08456) opened to sterile field. 11:32:20 ACIST Manifold (84184) opened to sterile field. 11:32:22 Tegaderm 4 x 4 (1626W) opened to sterile field. 11:32:22 ACIST Hand Control (92308) opened to sterile field. 11:32:44 Medline Cath Pack ([id number]) opened to sterile field. 11:32:45 DIAGNOSTIC Multipack 5Fr catheter set ([id number]) opened to sterile field. 11:32:46 SHEATH 5FR [place] ([id number]) opened to sterile field. 11:32:47 EMERALD Guide Wire (102-207) opened to sterile field. 11:34:49 Physician arrived 11:34:50 --------ALL STOP TIME OUT------ 11:34:51 Final Timeout: patient, procedure, and site verified with staff and physician. All members of the team are in agreement. 11:34:56 Right groin site verified by team. 11:35:00 Fire Safety Assessment: A--An alcohol-based skin anteseptic being used preoperatively., C--Open oxygen or nitrous oxide is being used., D--An ESU, laser, or fiber-optic light is being used. 11:35:03 Physical assessment completed. ASA score P 2 - A patient with mild systemic disease as per Duc Wagner MD. 11:35:22 3a) 45-59 Moderately reduced kidney function. 11:35:38 Maximum allowable contrast dose (3.7 X eGFR X 0.75)130 ml. 11:35:42 Sedation plan: IV Moderate Sedation Medication:Versed, Fentanyl 11:40:37 Oxygen 2 l/min etCO2 Nasal cannula was administered by Keira Ceballos RN; used for procedure; Verbal order read back and verified. 11:40:43 Lidocaine 2% 20ml vial added to field was administered by Keira Ceballos RN; used for procedure; Verbal order read back and verified. 11:40:50 Heparin Flush Bag (1000units/500ml NS) 2 bags added to field was administered by Keira Ceballos RN; Per physician; Verbal order read back and verified. 11:41:02 0.9% NaCl 100 ml/hr I.V. was administered by Keira Ceballos RN; Per physician; Verbal order read back and verified. 11:41:03 Zero performed for pressure channel P1 11:41:08 Refer to Anesthesia Notes for Sedation Medications was administered by Keira Ceballos RN; ; Verbal order read back and verified. 11:43:26 Full Disclosure recording started 11:43:26 Procedure started. 11:43:29 Local anesthetic to right femoral artery with Lidocaine 2% by Duc moura MD.INITIAL ACCESS ONLY 11:48:36 A 5 Fr sheath was inserted into the Right Femoral artery 11:50:09 A MULTIPACK 3DRC 5Fr catheter was advanced over the wire and used for Right Coronary Angiography. 11:52:17 RCA angiography performed. 11:52:19 Injector settings: Ml/sec: 3, Volume: 6, 11:52:31 Catheter removed. 11:52:38 A MULTIPACK JL 4.0 5Fr catheter was advanced over the wire and used for Left Coronary Angiography. 11:53:12 LCA angiography performed. 11:53:14 Injector settings: Ml/sec: 3, Volume: 6, 11:59:55 Catheter removed. 12:00:02 A MULTIPACK Pigtail 5 Fr catheter was advanced over the wire and used for LV Angiography. 12:00:29 LV hemodynamics recorded. 12:00:30 LV gram done using VASQUEZ 12:00:32 Injector settings: Ml/sec: 5, Volume: 15, 12:00:39 EF : 55 % 12:00:52 Catheter removed. 12:04:22 EXOSEAL 5Fr (EX500) opened to sterile field. 12:04:43 Sheath removed intact; hemostasis achieved with Exoseal to the Right Femoral artery. 12:04:49 Procedure ended.(Physican Out) 12:05:08 Fluoroscopy time 03.20 minutes. 12:05:12 Fluoroscopy dose: 1120 mGy 12:05:12 Flurop Dose total: 1120 12:05:18 Dose Area Product 75845 mGy/cm. 12:05:21 Contrast amount:Isovue 300 81ml. 12:05:24 Maximum allowable dose exceeded? No. 12:06:14 Sharps counted by scrub and verified by R.N. 12:06:15 Insertion/operative site no bleeding no hematoma. 12:06:18 Post-op/insertion site Right Femoral artery dressed using a 4 x 4 and Tegaderm. 12:06:20 Post Procedure Pulses reassessed and unchanged 12:06:22 Post procedure rhythm: unchanged. 12:06:37 Estimated blood loss: 5 ml 12:06:38 Post procedure instruction explained to patient.Patient verbalizes understanding. 12:06:39 Patient needs reinforcement of post procedure teaching. 12:06:51 Procedure type changed to Cath procedure, Diagnostic procedure, C, C w/Coronaries 12:07:23 Procedure and supply charges have been captured, reviewed, submitted an d are correct. 12:07:27 Procedure Complication : No complications 12:07:30 Vital chart was stopped 12:07:33 [facility] Findings: MVD- MD will discuss options w/ pt 12:07:34 See physician's report for complete and final results. 12:07:34 Operative report dictated upon procedure completion. 12:07:36 Report given to Pre/Post Procedure Room. 12:07:39 Patient transfered to Pre/Post Procedure Room with Stretcher. 12:07:46 Full Disclosure recording stopped 12:07:46 Procedure ended. 12:08:01 End room use (Document Last) 12:08:29 End room use (Document Last) Device Usage Item Name Manufacture Quantity Catalog Hospital Part Current Minimal L ot# / Number Charge Number Stock Stock Serial# Code ACIST Acist 1 06411 405074 455071 924330 20 Syringe Medical (85189) Systems Inc Bag Microtek 1 2001S 275966 63472 403143 5 Decanter Medical Inc. () ACIST Acist 1 52049 355718 595901 387394 5 Manifold Medical (22688) Systems Inc ACIST Hand Acist 1 32585 475673 961286 247375 5 Control Medical (23768) Systems Inc Tegaderm 4 3M 1 1626W 995273 234232 335163 5 x 4 (1626W) Medline Medline 1 [id number] 093844 15271 075281 5 Cath Pack ([id number]) DIAGNOSTIC Cardinal 1 DO8674 598088 12315 223973 30 Multipack Health 5Fr catheter set (TI7836) SHEATH 5FR Terumo 1 MHN001 847878 870693 729320 5 [place] (KMU677) EMERALD Cardinal 1 502455 470419 519859 876739 5 Guide Wire Health (502455) MULTIPACK Cardinal 1 479076 5 3DRC 5Fr Health catheter MULTIPACK Cardinal 1 852375 5 JL 4.0 5Fr Health catheter MULTIPACK Cardinal 1 025594 5 Pigtail 5 Health Fr catheter EXOSEAL 5Fr Cardinal 1 EX500 030805 460598 362069 10 (EX500) Health Signature Audit [place] Stage Time Signature Unsigned Intra-Procedure 07/20/2019 Annamarie Sparrow 12:08:29 PM RT(R) Intra-Procedure 07/20/2019 Keira Ceballos RN 12:12:14 PM Intra-Procedure 07/20/2019 Duc Wganer MD 12:16:18 PM Signatures Monitor : Annamarie Sparrow RT Signature : Date : Time : Nurse : Keira Ceballos RN Signature : Date : Time : Performing Physician : Signature : Duc Wagner MD Date : Time : [address] [place] [address]
[2019-07-20] MEDS ORDERED: PERCOCET 7.5/321 TAB PO (08:36)
[2019-07-20] MEDS ORDERED: ZOLOFT100 MG PO (08:37)
[2019-07-20] MEDS ORDERED: NORVASC5 MG PO (08:38)
[2019-07-20] MEDS ORDERED: LISINOPRIL5 MG PO (08:38)
[2019-07-20] MEDS ORDERED: LOSARTAN-HCTZ1 EAC1 PO (08:38)
[2019-07-20] MEDS ORDERED: LIPITOR40 MG PO (08:38)
[2019-07-20] MEDS ORDERED: COMBIVENT RESPIM4 GM INH (08:39)
[2019-07-20] MEDS ORDERED: PEPCID AC20 MG PO (08:39)
[2019-07-20] MEDS ORDERED: FUROSEMIDE20 MG PO (08:40)
[2019-07-20 08:46] VITALS: BP 179/95; Ht 157.5 cm; Wt 98.4 kg
[2019-07-20 09:00] LABS: BASOPHILS 0.2 % (0-2); EOSINOPHILS 2.3 % (0-7); HEMATOCRIT 39.7 % (36.0-48.0); HEMOGLOBIN 12.5 g/dL (12-16); IMMATURE GRANULOCYTES 0.2 % (0-5); LYMPHOCYTES 13.3 % (15-50); MCH 28.7 pg (26.0-34.0); MCHC 31.5 g/dL (31.0-37.0); MCV 91.3 fL (80.0-100.0); MEAN PLATELET VOLUME 9.7 fL (7.4-10.4); MONOCYTES 6.8 % (2-11); NEUTROPHILS 77.2 % (40-80); PLATELET COUNT 206 10x3/uL (130-400); RBC 4.35 10x6/uL (4.00-5.40); RDW 14.4 % (11.5-14.5); WBC 5.2 10x3/uL (4.8-10.8)
[2019-07-20 09:21] LABS: CALCIUM 9.3 mg/dL (8.5-10.1); CARBON DIOXIDE 28.9 mmol/L (21.0-32.0); CHOL - HDL RATIO 3.8 ratio (2.3-4.1); CREATININE - SERUM 1.2 mg/dL (0.6-1.3); LDL-HDL RATIO 1.6 ratio (1.5-3.5); POTASSIUM - SERUM 3.9 mmol/L (3.5-5.1)
--- NOTE | 2019-07-20 12:20 | NUR ---
PT REC'D TO ROOM 6 VIA STRETCHER FROM MEAT SEAFOOD ASSOCIATE. MONITORS ESTAB. PT RESTLESS - INSTRUCTED ON IMPORTANCE OF KEEPING R LEG STRAIGH AND HEAD FLAT ON PILLOW. DAUGHTER AT BS TO HELP REMIND HER. SEE AFTERNOON NANNY. ALARMS ON AND C/L IN [facility].
--- NOTE | 2019-07-20 12:35 | NUR ---
R GROIN SITE SOFT, NO S/S BLEEDING OR HEMATOMA, PEDAL PULSE PALP WITH BRISK CAP REFILL. PT VOIDED 350 ML CLEAR, YELLOW URINE ON BED SHEPPARD. ADCIA-CARE PROVIDED. PT STILL C/O "RESTLESS LEG SYNDROME", AWARE AND MEDICATION HAS BEEN GIVEN PREOP. ALARMS ON AND C/L IN REACH.
[2019-07-20] MEDS ORDERED: RANEXA500 MG PO (12:42)
--- NOTE | 2019-07-20 13:05 | NUR ---
R GROIN SITE SOFT, C/D/I. NO S/S BLEEDING OR HEMATOMA. VSS. PT TEARFUL, "I MISS MY MOM AND DAD". PT IS ORIENTED TO SITUATION - "I WANNA GO HOME." EXPLAINED POST OP POC AND REASSURED THAT EVERY THING IS GOING WELL.
--- NOTE | 2019-07-20 13:25 | NUR ---
R GROIN SITE SOFT, C/D/I. HOB UP. SANDWICH TRAY PROVIDED. PT IS CALM, AND DENIES PAIN. "I'M SORRY I ACTED LIKE THAT" - REASSURED PT IT WAS D/T ANSESTHESIA AND THAT EVERYTHING IS GOING OK.
--- NOTE | 2019-07-20 13:40 | NUR ---
R GROIN SITE C/D/I. NO S/S BLEEDING OR HEMATOMA. PULSES PALP. VSS. PT VISITING WITH DAUGHTER. C/L IN REACH.
--- NOTE | 2019-07-20 13:50 | NUR ---
DR. GALLEGOS IN TO SEE PT AND SPOKE WITH HER AND HER DAUGHTER EXTENSIVELY ABOUT FINDINGS AND POC.
--- NOTE | 2019-07-20 13:56 | NUR ---
PRESCRIPTION RANEXA CALLED IN TO [facility] PER PT REQUEST.
--- NOTE | 2019-07-20 14:00 | NUR ---
R GROIN SITE SOFT, C/D/I. PIV D/C'D INTACT, DSG APPLIED. PT ALLOWED UP TO GET DRESSED, DAUGHTER HELPING. THEN PT UP TO BR INDEPENDENTLY.
--- NOTE | 2019-07-20 14:05 | NUR ---
ALL D/C INSTRUCTIONS REVIEWED WITH PT AND DAUGHTER, INCLUDING RESTRICTIONS, NEW MEDICATION AND F/U APPT.
--- NOTE | 2019-07-20 14:15 | NUR ---
PT D/C'D VIA W/C TO PRIVATE VEHICLE WITH ALL PAPERWORK AND BELONGINGS.
== END 2019-07-20 14:15 | disposition home or self-care (01) ==
LOC: D.CATH 08:11
PROVIDERS: ATTEND Internal Medicine Cardiovascular Disease
DX: I25.119 Atherosclerotic heart disease of native coronary artery with unspecified angina pectoris (principal); R94.30 Abnormal result of cardiovascular function study, unspecified; R07.89 Other chest pain; E11.9 Type 2 diabetes mellitus without complications; I10 Essential (primary) hypertension; J44.9 Chronic obstructive pulmonary disease, unspecified; E78.5 Hyperlipidemia, unspecified; K21.9 Gastro-esophageal reflux disease without esophagitis; Z79.84 Long term (current) use of oral hypoglycemic drugs

== ENCOUNTER 2019-08-26 10:40 | Emergency (ER) | payer MEDICARE ==
[~2019-08-26] VITALS: Ht 157.5 cm; Wt 99.1 kg
[~2019-08-26 10:40] MED LIST changes: +COMBIVENT RESPIM4 GM INH; +FUROSEMIDE20 MG PO; +LIPITOR40 MG PO; +LISINOPRIL5 MG PO; +LOSARTAN-HCTZ1 EAC1 PO; +NORVASC5 MG PO; +PEPCID AC20 MG PO; +PERCOCET 7.5/321 TAB PO; +RANEXA500 MG PO; +ZOLOFT100 MG PO
[2019-08-26 10:44] VITALS: Ht 157.5 cm; Wt 99.1 kg
[2019-08-26 12:04] LABS: HEMATOCRIT 37.1 % (36.0-48.0); HEMOGLOBIN 11.8 g/dL (12-16); LYMPHOCYTES 12.3 % (15-50); MCH 28.9 pg (26.0-34.0); MCHC 31.8 g/dL (31.0-37.0); MCV 90.7 fL (80.0-100.0); MEAN PLATELET VOLUME 9.1 fL (7.4-10.4); NEUTROPHILS 79.9 % (40-80); PLATELET COUNT 188 10x3/uL (130-400); RBC 4.09 10x6/uL (4.00-5.40); RDW 14.5 % (11.5-14.5); WBC 5.1 10x3/uL (4.8-10.8)
[2019-08-26 12:16] LABS: CALC OSMOLALITY 282 mosm/kg (275-300); CALCIUM 8.5 mg/dL (8.5-10.1); CARBON DIOXIDE 31.3 mmol/L (21.0-32.0); CHLORIDE - SERUM 102 mmol/L (98-107); CREATININE - SERUM 1.4 mg/dL (0.6-1.3); GLUCOSE 186 mg/dL (74-106); POTASSIUM - SERUM 3.9 mmol/L (3.5-5.1); SODIUM 138 mmol/L (136-145); UREA NITROGEN 18 mg/dL (7-18); eGFR NON AFRICAN AMERICAN 39 mL/min (90-120)
[2019-08-26 12:22] LABS: APTT 29.9 SECONDS (22.8-39.4)
[2019-08-26 12:27] LABS: INR 0.89 (0.85-1.17)
[2019-08-26 12:31] LABS: ALBUMIN 3.6 g/dL (3.4-5.0); ALKALINE PHOSPHATASE 93 U/L (30-120); ALT (SGPT) 17 U/L (10-68); BILIRUBIN - TOTAL 0.43 mg/dL (0.2-1.3); CKMB 1.2 U/L (0.0-3.6); CREATINE KINASE 58 UL (21-215); MAGNESIUM - SERUM 1.9 mg/dL (1.8-2.4); PROTEIN - SERUM 6.8 g/dL (6.4-8.2); TROPONIN-I < 0.017 ng/mL (0.000-0.060)
[2019-08-26 13:03] VITALS: BP 152/86
== END 2019-08-26 13:04 | disposition home or self-care (01) ==
LOC: D.ER 10:40
PROVIDERS: Family Medicine
DX: F41.9 Anxiety disorder, unspecified (principal); I25.10 Atherosclerotic heart disease of native coronary artery without angina pectoris; E11.9 Type 2 diabetes mellitus without complications; I10 Essential (primary) hypertension; Z95.0 Presence of cardiac pacemaker; J44.9 Chronic obstructive pulmonary disease, unspecified

== ENCOUNTER 2019-10-16 16:18 | Observation (INO) | payer MEDICARE ==
[~2019-10-16] VITALS: Ht 157.5 cm; Wt 90.7 kg
--- NOTE | ~2019-10-16 | EC ---
PATIENT:ROBERTO MARTEL DATE OF SERVICE: 10/16/19 SEX: F MEDICAL RECORD: [id number] DATE OF : [birth year] LOCATION:D.M2 D.212 AGE OF PATIENT: 68 ADMISSION DATE: 10/16/19 REFERRING PHYSICIAN: INTERPRETING PHYSICIAN: TATYANA WILSON MD ECHOCARDIOGRAM REPORT ECHO CHARGES 4 ECHO COMPLETE Date: 10/17/19 CLINICAL DIAGNOSIS: CP, CAD ECHOCARDIOGRAPHIC MEASUREMENTS (adult normal given) AC root (d.<3.7cm) 3.8 cm LV Septum d (<1.2 cm> 1.5 cm Valve Excursion 2.0 cm LV Septum (systole) 2.2 cm Left Atria (s.<4.0cm> 3.5 cm LVPW d(<1.2cm) 1.0 cm RV (d.<2.3cm) 3.9 cm LVPW (sytole) 1.2 cm LV diastole(<5.6CM) 5.6 cm MV E-F(>70mm/sec) cm LV systole 3.9 cm LVOT Diameter 1.6 cm MV exc.(>10mm) cm Est.ejection fraction (50-75%) % DOPPLER: LVIT cm/sec A 108 cm/sec E 99 cm/sec LA cm/sec RVSP 33.2 mmHg LVOT 122 cm/sec AOP1/2T m/s Asc. Ao 191 cm/sec RVOT 64 cm/sec RA cm/sec PA 110 cm/sec AV Gradient Peak 14.7 mmHg AV Mean 8.2 mmHg AV Area 1.2 cm MV Gradient Peak 7.5 mmHg MV Mean 3.2 mmHg MV Area cm COMMENTS: Disability Aide: Laurel [facility] Podiatry Teacher: 3 Dr. Patel TAPE# PACS Pericardial Effusion N DATE OF SERVICE: Adequate 2D, color flow imaging, spectral Doppler, and M-Mode. LVH is present. LV internal dimension is normal. Wall motion is normal. EF is greater than or equal to 55%. Aortic valve is tricuspid. No evidence of stenosis by Doppler interrogation. Left atrium is normal. Mitral valve shows no prolapse. Trace MR. Right-sided chambers are grossly normal. Trace TR. TRANSINT:[id number] Voice Confirmation ID: [id number] DOCUMENT ID: [id number] ECHOCARDIOGRAM REPORT [id number] ROBERTO MARTEL TATYANA WILSON MD CC: [id number] DICTATION DATE: 10/18/19819 FAMILY SERVICE ASSISTANT: 10/18/1945 DIS [place] 10/17/19 [place] [id number] [place] [id number]
[2019-10-16 16:59] VITALS: BP 137/87
[2019-10-16 17:01] LABS: BASOPHILS 0.2 % (0-2); EOSINOPHILS 2.9 % (0-7); HEMOGLOBIN 12.5 g/dL (12-16); IMMATURE GRANULOCYTES 0.2 % (0-5); LYMPHOCYTES 20.5 % (15-50); MCHC 32.1 g/dL (31.0-37.0); MCV 93.8 fL (80.0-100.0); MEAN PLATELET VOLUME 9.9 fL (7.4-10.4); MONOCYTES 7.6 % (2-11); NEUTROPHILS 68.6 % (40-80); PLATELET COUNT 202 10x3/uL (130-400); RBC 4.16 10x6/uL (4.00-5.40); RDW 14.9 % (11.5-14.5); WBC 5.2 10x3/uL (4.8-10.8)
[2019-10-16 17:08] LABS: APTT 26.8 SECONDS (22.8-39.4); INR 0.9 (0.85-1.17); PROTIME 12.1 SECONDS (11.6-15.0)
[2019-10-16 17:24] LABS: CALC OSMOLALITY 287 mosm/kg (275-300); CALCIUM 8.8 mg/dL (8.5-10.1); CARBON DIOXIDE 26.8 mmol/L (21.0-32.0); CHLORIDE - SERUM 104 mmol/L (98-107); CREATININE - SERUM 1.3 mg/dL (0.6-1.3); GLUCOSE 205 mg/dL (74-106); POTASSIUM - SERUM 4.2 mmol/L (3.5-5.1); SODIUM 139 mmol/L (136-145); UREA NITROGEN 23 mg/dL (7-18); eGFR NON AFRICAN AMERICAN 43 mL/min (90-120)
[2019-10-16 17:25] VITALS: BP 137/87
[2019-10-16 17:42] LABS: ALBUMIN 3.8 g/dL (3.4-5.0); ALKALINE PHOSPHATASE 116 U/L (30-120); ALT (SGPT) 16 U/L (10-68); BILIRUBIN - TOTAL 0.33 mg/dL (0.2-1.3); CREATINE KINASE 79 UL (21-215); MAGNESIUM - SERUM 1.8 mg/dL (1.8-2.4)
[2019-10-16 17:48] LABS: PROTEIN - SERUM 7.7 g/dL (6.4-8.2); TROPONIN-I < 0.017 ng/mL (0.000-0.060)
[2019-10-16 18:00] VITALS: BP 143/84
[2019-10-16 19:52] VITALS: BP 145/63
--- NOTE | 2019-10-16 19:58 | NUR ---
LAB AT BEDSIDE
--- NOTE | 2019-10-16 20:40 | NUR ---
PROVIDER AT BEDSIDE.
[2019-10-17 00:04] VITALS: BP 137/69; BMI 36.6
[2019-10-17 02:55] LABS: BASOPHILS 0.2 % (0-2); EOSINOPHILS 3.9 % (0-7); HEMATOCRIT 37.7 % (36.0-48.0); HEMOGLOBIN 11.7 g/dL (12-16); IMMATURE GRANULOCYTES 0.2 % (0-5); LYMPHOCYTES 24.8 % (15-50); MCH 29.3 pg (26.0-34.0); MCV 94.5 fL (80.0-100.0); MEAN PLATELET VOLUME 10.2 fL (7.4-10.4); MONOCYTES 5.6 % (2-11); NEUTROPHILS 65.3 % (40-80); PLATELET COUNT 187 10x3/uL (130-400); RBC 3.99 10x6/uL (4.00-5.40); RDW 14.9 % (11.5-14.5); WBC 4.6 10x3/uL (4.8-10.8)
[2019-10-17 03:13] LABS: CALC OSMOLALITY 285 mosm/kg (275-300); CARBON DIOXIDE 29.9 mmol/L (21.0-32.0); CHLORIDE - SERUM 105 mmol/L (98-107); CKMB 0.9 U/L (0.0-3.6); CREATINE KINASE 64 UL (21-215); CREATININE - SERUM 1.3 mg/dL (0.6-1.3); GLUCOSE 175 mg/dL (74-106); SODIUM 140 mmol/L (136-145); TROPONIN-I < 0.017 ng/mL (0.000-0.060); UREA NITROGEN 22 mg/dL (7-18); eGFR NON AFRICAN AMERICAN 43 mL/min (90-120)
[2019-10-17 04:00] VITALS: BP 115/63
[2019-10-17 09:33] LABS: CKMB 0.6 U/L (0.0-3.6); CREATINE KINASE 56 UL (21-215); TROPONIN-I 0.034 ng/mL (0.000-0.060)
[2019-10-17 10:36] VITALS: BP 116/54
[2019-10-17 12:00] VITALS: BP 132/72
[2019-10-17 13:43] VITALS: Ht 157.5 cm; Wt 90.7 kg
--- NOTE | 2019-10-17 15:00 | NUR ---
PATIENT REFUSED TX. SHE STATES SHE DOESN'T NEED MEDICINES AND HAS PLENTY OF MEDICINE AT HOME.
[2019-10-17 15:17] LABS: CKMB 0.7 U/L (0.0-3.6); CREATINE KINASE 55 UL (21-215); TROPONIN-I < 0.017 ng/mL (0.000-0.060)
--- NOTE | 2019-10-17 16:07 | NUR ---
PT'S DISCHARGE INSTRUCTIONS REVIEWED AND SIGNED. TELEMETRY REMOVED. WHEELED OUT VIA CHAIR TO ER FOR TRANSPORT HOME.
--- NOTE | 2019-10-18 08:21 | CN ---
PATIENT NAME:ROBERTO MARTEL MEDICAL RECORD: [id number] : 46 LOCATION:D. D.2124 ADMIT DATE: 10/16/19 ACCOUNT: [id number] CONSULTING PHYSICIAN: TATYANA WILSON MD REFERRING PHYSICIAN: JUSTYNA AMADOR MD DATE OF CONSULTATION: 10/17/2019 HISTORY OF PRESENT ILLNESS: A 68-year-old female with history of coronary artery disease with totally occluded right, rich collaterals from the left, normal LV function, sick sinus syndrome, status post pacer placement, hypertension and diabetes, admitted with chest pain. This occurred when her blood pressure was elevated. Cardiac enzymes are negative at this point. EKG is unchanged. We are asked to see concerning her cardiovascular status. PAST MEDICAL HISTORY: Includes; 1. History of hypertension. 2. Hyperlipidemia. 3. Diabetes mellitus. 4. Sick sinus syndrome, status post pacemaker placement. 5. Coronary artery disease as described above. ALLERGIES: BENADRYL. MEDICATIONS: Include Combivent inhaler 1 puff b.i.d., Plavix 75 every day, atenolol 50 every day, losartan 100/25 every day, amlodipine 5 every day, atorvastatin 40 every day, lisinopril 5 every day, Ranexa 500 b.i.d., aspirin 81 every day, Neurontin 300 at bedtime, [place] 7.5/325 one p.o. every 4 hours p.r.n., Zoloft 100 every day, Lasix 20 every day, metformin 500 b.i.d. as well as glipizide 2.5 every day. SOCIAL HISTORY: Nonsmoker, nondrinker. Easily takes care of all her ADLs. No set exercise program. REVIEW OF SYSTEMS: The patient reports easy bruising but reports no swollen glands. The patient reports no fever, no night sweats, no significant weight gain, no significant weight loss. No significant exercise tolerance. The patient reports no dry eyes, no irritation, no vision change. Patient reports no difficulty hearing and no ear pain. Patient reports no frequent nose bleeds or nose and sinus problems. Patient reports on arm pain on exertion. No shortness of breath while lying down. No history of heart murmur. Patient reports no cough, no wheezing or coughing up blood. Patient reports no abdominal pain, no vomiting. Normal appetite. No diarrhea and not vomiting blood. No nausea and no constipation. Patient reports no incontinence. No difficulty urinating. No hematuria. No increased frequency. Patient reports no muscle aches. No weakness, no arthralgias, no back pain. No swelling of the extremities. Patient reports no abnormal mole, no jaundice, no rashes. Reports no loss of consciousness. No weakness and no numbness. No seizures, dizziness, or headaches. The patient reports no depression, no sleep disturbance, feeling safe in a relationship and no alcohol abuse. Patient reports on fatigue. Reports no runny nose or sinus pressure. No itching, no hives, and no frequent sneezing. PHYSICAL EXAMINATION: GENERAL: Please female in no acute distress, appears stated age. VITAL SIGNS: Blood pressure 115/63, pulse 60 and regular. CONSULT REPORT [id number] MEANS,ROBERTO HEENT: Normocephalic, atraumatic. NECK: No JVD or bruit. HEART: Regular. LUNGS: Good air excursion. ABDOMEN: Soft, nontender. EXTREMITIES: Pulses 2+ with no edema. IMPRESSION: Questionable demand angina with hypertension initially. No evidence of any enzyme elevation at this point. EKG is unchanged with some optimal medication for angina. Pacemaker is functioning appropriately. No contraindication for discharge from our standpoint. TRANSINT:[id number] Voice Confirmation ID: [id number] DOCUMENT ID: [id number] TATYANA WILSON MD at 0821 CC: [id number] DICTATION DATE: 10/17/19 0950 SURVEY RODMAN: 10/17/19 1551 DIS IN 10/17/19 [place] [id number] [place] [address]
== END 2019-10-17 16:08 | disposition home or self-care (01) ==
LOC: D.ER 16:18 → OBSVTIME 21:11 → D.M2 21:11 → D.EDHOLD 21:11 → D.M2 23:08
PROVIDERS: Family Medicine; ADMIT Legal Medicine; ATTEND Legal Medicine
DX: R07.89 Other chest pain (principal); I10 Essential (primary) hypertension; J44.9 Chronic obstructive pulmonary disease, unspecified; E11.65 Type 2 diabetes mellitus with hyperglycemia; Z95.0 Presence of cardiac pacemaker; K21.9 Gastro-esophageal reflux disease without esophagitis; Z79.84 Long term (current) use of oral hypoglycemic drugs

== ENCOUNTER 2019-10-20 22:57 | Emergency (ER) | payer MEDICARE ==
[~2019-10-20] VITALS: Ht 157.5 cm; Wt 90.9 kg
[2019-10-20 23:05] VITALS: Ht 157.5 cm; Wt 90.9 kg
[2019-10-21 00:25] LABS: BASOPHILS 0.2 % (0-2); EOSINOPHILS 4.7 % (0-7); HEMATOCRIT 33.2 % (36.0-48.0); HEMOGLOBIN 10.3 g/dL (12-16); LYMPHOCYTES 14.8 % (15-50); MCH 29.8 pg (26.0-34.0); MEAN PLATELET VOLUME 10.2 fL (7.4-10.4); MONOCYTES 6.8 % (2-11); NEUTROPHILS 73.5 % (40-80); PLATELET COUNT 163 10x3/uL (130-400); RBC 3.46 10x6/uL (4.00-5.40); WBC 4.3 10x3/uL (4.8-10.8)
[2019-10-21] MEDS ORDERED: LASIX40 MG PO (00:25)
[2019-10-21 00:41] LABS: CALC OSMOLALITY 287 mosm/kg (275-300); CALCIUM 8.4 mg/dL (8.5-10.1); CARBON DIOXIDE 27.8 mmol/L (21.0-32.0); CHLORIDE - SERUM 103 mmol/L (98-107); CREATININE - SERUM 1.5 mg/dL (0.6-1.3); GLUCOSE 203 mg/dL (74-106); POTASSIUM - SERUM 3.8 mmol/L (3.5-5.1); SODIUM 139 mmol/L (136-145); UREA NITROGEN 23 mg/dL (7-18); eGFR NON AFRICAN AMERICAN 36 mL/min (90-120)
[2019-10-21 00:46] LABS: ALBUMIN 3.2 g/dL (3.4-5.0); ALKALINE PHOSPHATASE 87 U/L (30-120); ALT (SGPT) 17 U/L (10-68); C-REACTIVE PROTEIN 2.2 mg/dL (0.0-0.9); PRO BNP 702 pg/mL (0-125); PROTEIN - SERUM 6.1 g/dL (6.4-8.2)
[2019-10-21 00:48] LABS: TROPONIN-I < 0.017 ng/mL (0.000-0.060)
[2019-10-21 01:52] VITALS: BP 165/89
== END 2019-10-21 01:52 | disposition home or self-care (01) ==
LOC: D.ER 22:57
PROVIDERS: Family Medicine
DX: R06.09 Other forms of dyspnea (principal); I11.0 Hypertensive heart disease with heart failure; I50.9 Heart failure, unspecified; E11.9 Type 2 diabetes mellitus without complications; J44.9 Chronic obstructive pulmonary disease, unspecified; K21.9 Gastro-esophageal reflux disease without esophagitis; Z79.84 Long term (current) use of oral hypoglycemic drugs; Z99.81 Dependence on supplemental oxygen

== ENCOUNTER 2019-11-07 13:45 | Observation (INO) | payer MEDICARE ==
[~2019-11-07] VITALS: Ht 157.5 cm; Wt 97.7 kg
[~2019-11-07 13:45] MED LIST changes: +LASIX40 MG PO
[2019-11-07 15:30] LABS: BASOPHILS 0.2 % (0-2); EOSINOPHILS 4.3 % (0-7); HEMATOCRIT 41.8 % (36.0-48.0); HEMOGLOBIN 13.4 g/dL (12-16); IMMATURE GRANULOCYTES 0.2 % (0-5); LYMPHOCYTES 14.1 % (15-50); MCH 30.2 pg (26.0-34.0); MCHC 32.1 g/dL (31.0-37.0); MCV 94.1 fL (80.0-100.0); MEAN PLATELET VOLUME 9.8 fL (7.4-10.4); MONOCYTES 6.9 % (2-11); NEUTROPHILS 74.3 % (40-80); RBC 4.44 10x6/uL (4.00-5.40); RDW 14.5 % (11.5-14.5); WBC 5.5 10x3/uL (4.8-10.8)
[2019-11-07 15:43] LABS: APTT 27.4 SECONDS (22.8-39.4); INR 0.88 (0.85-1.17); PROTIME 11.9 SECONDS (11.6-15.0)
[2019-11-07 15:44] LABS: CALC OSMOLALITY 286 mosm/kg (275-300); CALCIUM 9.7 mg/dL (8.5-10.1); CARBON DIOXIDE 26.8 mmol/L (21.0-32.0); CHLORIDE - SERUM 102 mmol/L (98-107); CREATININE - SERUM 1.5 mg/dL (0.6-1.3); GLUCOSE 145 mg/dL (74-106); POTASSIUM - SERUM 3.8 mmol/L (3.5-5.1); SODIUM 139 mmol/L (136-145); UREA NITROGEN 29 mg/dL (7-18); eGFR NON AFRICAN AMERICAN 36 mL/min (90-120)
[2019-11-07 15:46] LABS: PLATELET COUNT 222 10x3/uL (130-400)
[2019-11-07 16:01] LABS: ALBUMIN 4.1 g/dL (3.4-5.0); ALKALINE PHOSPHATASE 111 U/L (30-120); ALT (SGPT) 15 U/L (10-68); BILIRUBIN - TOTAL 0.42 mg/dL (0.2-1.3); CKMB 0.9 U/L (0.0-3.6); CREATINE KINASE 46 UL (21-215); MAGNESIUM - SERUM 1.8 mg/dL (1.8-2.4); PROTEIN - SERUM 7.8 g/dL (6.4-8.2)
[2019-11-07 16:02] LABS: TROPONIN-I < 0.017 ng/mL (0.000-0.060)
[2019-11-07 19:00] VITALS: BP 127/83
--- NOTE | 2019-11-07 19:09 | NUR ---
REPORT GIVEN TO RONY GANDHI
[2019-11-07 20:52] VITALS: BP 148/81
[2019-11-07 22:11] LABS: CKMB 0.6 U/L (0.0-3.6); CREATINE KINASE 42 UL (21-215)
[2019-11-07 22:15] LABS: TROPONIN-I < 0.017 ng/mL (0.000-0.060)
[2019-11-08 04:53] LABS: BASOPHILS 0.5 % (0-2); EOSINOPHILS 5.2 % (0-7); HEMATOCRIT 39.1 % (36.0-48.0); HEMOGLOBIN 12.6 g/dL (12-16); LYMPHOCYTES 22.5 % (15-50); MCH 30.4 pg (26.0-34.0); MCHC 32.2 g/dL (31.0-37.0); MCV 94.2 fL (80.0-100.0); MEAN PLATELET VOLUME 9.9 fL (7.4-10.4); MONOCYTES 7.9 % (2-11); NEUTROPHILS 63.9 % (40-80); PLATELET COUNT 202 10x3/uL (130-400); RBC 4.15 10x6/uL (4.00-5.40); RDW 14.5 % (11.5-14.5); WBC 4.4 10x3/uL (4.8-10.8)
[2019-11-08 05:25] LABS: ALBUMIN 3.5 g/dL (3.4-5.0); ALKALINE PHOSPHATASE 98 U/L (30-120); ALT (SGPT) 14 U/L (10-68); BILIRUBIN - TOTAL 0.36 mg/dL (0.2-1.3); CALC OSMOLALITY 281 mosm/kg (275-300); CALCIUM 8.6 mg/dL (8.5-10.1); CARBON DIOXIDE 26.7 mmol/L (21.0-32.0); CHLORIDE - SERUM 104 mmol/L (98-107); CKMB 0.7 U/L (0.0-3.6); CREATINE KINASE 51 UL (21-215); CREATININE - SERUM 1.3 mg/dL (0.6-1.3); GLUCOSE 117 mg/dL (74-106); POTASSIUM - SERUM 3.9 mmol/L (3.5-5.1); SODIUM 138 mmol/L (136-145); TROPONIN-I < 0.017 ng/mL (0.000-0.060); UREA NITROGEN 27 mg/dL (7-18); eGFR NON AFRICAN AMERICAN 43 mL/min (90-120)
[2019-11-08 08:22] VITALS: BP 120/72
[2019-11-08 08:36] VITALS: BP 148/61; Ht 157.5 cm; Wt 97.7 kg
[2019-11-08 09:21] LABS: CREATINE KINASE 41 UL (21-215); TROPONIN-I < 0.017 ng/mL (0.000-0.060)
[2019-11-08 12:23] VITALS: BP 128/76
[2019-11-08] MEDS ORDERED: ISOSORBIDE DINI20 MG PO (16:38)
--- NOTE | 2019-11-08 17:41 | NUR ---
IV AND TELEMETRY DCD. DC PLANS GIVEN. UNDERSTANDING VOICED. ESCORTED TO CAR BY W/C.
== END 2019-11-08 17:41 | disposition home or self-care (01) ==
LOC: D.ER 13:45 → D.M2 17:03 → OBSVTIME 17:03 → D.M2 11-08 17:41
PROVIDERS: Family Medicine; ADMIT Emergency Medicine; ATTEND Emergency Medicine
DX: R07.9 Chest pain, unspecified (principal); Z95.0 Presence of cardiac pacemaker; J44.9 Chronic obstructive pulmonary disease, unspecified; K21.9 Gastro-esophageal reflux disease without esophagitis; I11.0 Hypertensive heart disease with heart failure; I50.9 Heart failure, unspecified; Z79.84 Long term (current) use of oral hypoglycemic drugs; E11.65 Type 2 diabetes mellitus with hyperglycemia; E66.01 Morbid (severe) obesity due to excess calories; Z68.41 Body mass index [BMI] 40.0-44.9, adult; I25.10 Atherosclerotic heart disease of native coronary artery without angina pectoris; N17.9 Acute kidney failure, unspecified

== ENCOUNTER 2019-11-10 19:31 | Emergency (ER) | payer MEDICARE ==
[~2019-11-10] VITALS: Ht 157.5 cm; Wt 97.5 kg
[~2019-11-10 19:31] MED LIST changes: +ISOSORBIDE DINI20 MG PO
[2019-11-10 19:36] VITALS: Ht 157.5 cm; Wt 97.5 kg
[2019-11-10 20:07] LABS: BASOPHILS 0.2 % (0-2); HEMATOCRIT 39.8 % (36.0-48.0); HEMOGLOBIN 12.8 g/dL (12-16); LYMPHOCYTES 22.1 % (15-50); MCH 30.4 pg (26.0-34.0); MCHC 32.2 g/dL (31.0-37.0); MCV 94.5 fL (80.0-100.0); NEUTROPHILS 63.7 % (40-80); PLATELET COUNT 220 10x3/uL (130-400); RBC 4.21 10x6/uL (4.00-5.40); RDW 14.3 % (11.5-14.5); WBC 4.9 10x3/uL (4.8-10.8)
[2019-11-10 20:16] LABS: ANION GAP 9.1 mmol/L (8-16); CALCIUM 9.3 mg/dL (8.5-10.1); CREATININE - SERUM 1.3 mg/dL (0.6-1.3); POTASSIUM - SERUM 4.1 mmol/L (3.5-5.1)
[2019-11-10 20:21] LABS: ALBUMIN 3.8 g/dL (3.4-5.0); BILIRUBIN - TOTAL 0.31 mg/dL (0.2-1.3); PROTEIN - SERUM 7.2 g/dL (6.4-8.2)
[2019-11-10 20:32] LABS: INR 0.9 (0.85-1.17); PROTIME 12.1 SECONDS (11.6-15.0)
[2019-11-10] MEDS ORDERED: NAPROSYN500 MG PO (22:22)
[2019-11-10 22:39] VITALS: BP 135/79
== END 2019-11-10 22:39 | disposition home or self-care (01) ==
LOC: D.ER 19:31
PROVIDERS: Family Medicine
DX: T85.9XXA Unspecified complication of internal prosthetic device, implant and graft, initial encounter (principal); M79.602 Pain in left arm; E11.9 Type 2 diabetes mellitus without complications; I10 Essential (primary) hypertension; Z95.0 Presence of cardiac pacemaker; J44.9 Chronic obstructive pulmonary disease, unspecified; K21.9 Gastro-esophageal reflux disease without esophagitis; Z79.84 Long term (current) use of oral hypoglycemic drugs

== ENCOUNTER 2019-11-22 17:28 | Emergency (ER) | payer MEDICARE ==
[~2019-11-22] VITALS: Ht 157.5 cm; Wt 97.7 kg
[~2019-11-22 17:28] MED LIST changes: +NAPROSYN500 MG PO
[2019-11-22 17:46] VITALS: Ht 157.5 cm; Wt 97.7 kg
[2019-11-22 18:14] LABS: BASOPHILS 0.4 % (0-2); EOSINOPHILS 2.3 % (0-7); HEMATOCRIT 42.3 % (36.0-48.0); HEMOGLOBIN 14.3 g/dL (12-16); IMMATURE GRANULOCYTES 0.2 % (0-5); LYMPHOCYTES 15.5 % (15-50); MCH 30.9 pg (26.0-34.0); MCHC 33.8 g/dL (31.0-37.0); MCV 91.4 fL (80.0-100.0); MEAN PLATELET VOLUME 9.7 fL (7.4-10.4); MONOCYTES 7.6 % (2-11); PLATELET COUNT 215 10x3/uL (130-400); RBC 4.63 10x6/uL (4.00-5.40); WBC 5.2 10x3/uL (4.8-10.8)
[2019-11-22 18:24] LABS: CALC OSMOLALITY 277 mosm/kg (275-300); CALCIUM 9.3 mg/dL (8.5-10.1); CARBON DIOXIDE 29.5 mmol/L (21.0-32.0); CHLORIDE - SERUM 99 mmol/L (98-107); CREATININE - SERUM 1.6 mg/dL (0.6-1.3); GLUCOSE 204 mg/dL (74-106); POTASSIUM - SERUM 3.5 mmol/L (3.5-5.1); SODIUM 135 mmol/L (136-145); UREA NITROGEN 19 mg/dL (7-18); eGFR NON AFRICAN AMERICAN 34 mL/min (90-120)
[2019-11-22 18:32] LABS: ALBUMIN 4.1 g/dL (3.4-5.0); ALKALINE PHOSPHATASE 114 U/L (30-120); ALT (SGPT) 14 U/L (10-68); AMYLASE - SERUM 28 U/L (25-115); PROTEIN - SERUM 7.7 g/dL (6.4-8.2)
[2019-11-22 18:33] LABS: LIPASE 49 U/L (73-393); TROPONIN-I < 0.017 ng/mL (0.000-0.060)
[2019-11-22 19:23] VITALS: BP 166/82
[2019-11-22 20:04] LABS: BILIRUBIN NEGATIVE (NEGATIVE); KETONE NEGATIVE (NEGATIVE); NITRITE NEGATIVE (NEGATIVE); UROBILINOGEN NORMAL mg/dL (< 2)
[2019-11-22] MEDS ORDERED: CHRONULAC30 ML PO ×2 (20:48→21:21)
[2019-11-22] MEDS ORDERED: ZOFRAN ODT4 MG/UDTAB PO (21:19)
== END 2019-11-22 23:13 | disposition home or self-care (01) ==
LOC: D.ER 17:28
PROVIDERS: Family Medicine
DX: K59.00 Constipation, unspecified (principal); R10.9 Unspecified abdominal pain; E11.65 Type 2 diabetes mellitus with hyperglycemia; I71.4 Abdominal aortic aneurysm, without rupture; E11.22 Type 2 diabetes mellitus with diabetic chronic kidney disease; N18.9 Chronic kidney disease, unspecified; I12.9 Hypertensive chronic kidney disease with stage 1 through stage 4 chronic kidney disease, or unspecified chronic kidney disease; J44.9 Chronic obstructive pulmonary disease, unspecified; K21.9 Gastro-esophageal reflux disease without esophagitis; Z79.84 Long term (current) use of oral hypoglycemic drugs